=== PATIENT | female | born 1965 | race Caucasian/White ===

== ENCOUNTER 2019-05-22 12:24 | Emergency (ER) | payer OTHER ==
--- OUTSIDE RECORDS SUMMARY | 2019-05-22 12:30 | XMS REPORT | Continuity of Care Document ---
:1965 External Reference #:[id number] Author Name Lizzy Peck, LYLE Address [address] [place] [address] Care Team Providers Name Role Phone Valentin Kirkland - Family Medicine Care Team Information Landscape Foreman [phone] Other Specialty Care Team Information Landscape Foreman Unavailable Ileana Byers ND, CM - Internal Care Team Information Landscape Foreman [phone] [facility] Physical Care Team Information Landscape Foreman Therapy - Physical Therapy Problems Active Problems Provider Date Exacerbation of asthma Panchito Weir M.D. Onset: 05/09/2009 Allergic rhinitis Valentin Kirkland M.D. Onset: 07/26/2009 Anxiety state Valentin Kirkland M.D. Onset: 03/03/2011 Myalgia & Myositis Unspecified Valentin Kirkland M.D. Onset: 01/14/2012 Arthropathy Valentin Kirkland M.D. Onset: 01/14/2012 Malaise and fatigue Valentin Kirkland M.D. Onset: 01/14/2012 Fever Valentin Kirkland M.D. 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 Onset: 12/08/2012 Palpitations Valentin Kirkland M.D. Onset: 10/31/2013 Obstructive sleep apnea syndrome Valentin Kirkland M.D. Onset: 10/31/2013 Arthralgia of the lower leg Valentin Kirkland M.D. Onset: 05/18/2014 Arthralgia of the ankle and/or foot Valentin Kirkland M.D. Onset: 05/18/2014 Carpal tunnel syndrome Valentin Kirkland M.D. Onset: 06/19/2014 Right lower quadrant pain Valentin Kirkland M.D. Onset: 01/21/2015 Allergic condition Valentin Kirkland M.D. Onset: 01/21/2015 Uterovaginal prolapse Valentin Kirkland M.D. Onset: 03/25/2015 Lyme disease Valentin Kirkland M.D. Onset: 03/25/2015 Benign paroxysmal positional vertigo Valentin Kirkland M.D. Onset: 07/02/2015 Chest pain Evan Lombardo M.D. Onset: 07/20/2015 Gastroesophageal reflux disease Valentin Kirkland M.D. Onset: 07/29/2015 Joint pain in left hand Valentin Kirkland M.D. Onset: 05/31/2017 Bronchitis Valentin Kirkland M.D. Onset: 07/10/2017 Mild intermittent asthma Valentin Kirkland M.D. Onset: 07/10/2017 Acute upper respiratory infection, Valentin Kirkland M.D. Onset: 07/10/2017 unspecified Low back pain Valentin Kirkland M.D. Onset: 01/23/2019 Social History Type Date Description Comments Sex Unknown Tobacco Use Start: Unknown Never Smoked Cigarettes ETOH Use Denies alcohol use Tobacco Use Start: Unknown Patient has never smoked Smoking Status Reviewed: 04/10/19 Patient has never smoked Allergies, Adverse Reactions, Alerts Active Allergies Reaction Severity Comments Date NKDA 03/02/2011 Wheat sensative 08/19/2016 Shrimp 09/17/2017 Medications Active Medications SIG Qnty Indications Ordering Date Provider Sertraline HCL Take 1/2 Tablet 45Tablet Conchis Sheppard, 11/24/2018 25mg By Mouth Every SCAFFOLDER Tablets Day Alprazolam 1/2-1 tabs by 40tabs Lizzy Rajan 09/07/2016 0.25mg Tablets mouth twice a Peck, PENSION AGENT day as needed anxiety Albuterol Inhaler 2 puffs four 2units Vinod Gutierrez 12/27/2004 times a day as Joel Troncoso needed Reglan one by mouth 30tabs Valentin Kirkland, 03/02/2002 10mg Tablets every day as Joel needed for migraines Melatonin ER once at every Unknown 3mg Tablets night at bedtime ER Cholestyramine dissolve & take Unknown 4gm Packet one powder packet by mouth three times daily before meals Synapsin 2 sprays each Unknown Powder nostril bid History Medications Cyclobenzaprine HCL take 1 to 2 30tabs M54.5 Valentin Kirkland, 01/23/2019 - 5mg tablets by Joel 04/10/2019 Tablets mouth at bedtime for muscle spasms Medications Administered in Office Medication SIG Qnty Indications Ordering Provider Date Allergy Injection Two Or More Valentin Kirkland M.D. 07/30/2014 Injection Allergy Injection Two Or More Valentin Kirkland M.D. 06/29/2014 Injection Allergy Injection Arie Or More Valentin Kirkland M.D. 05/31/2014 Injection Allergy Injection Arie Or More Valentin Kirkland M.D. 05/03/2014 Injection Allergy Injection Arie Or More Valentin Kirkland M.D. 04/20/2014 Injection Allergy Injection Arie Or More Valentin Kirkland M.D. 04/05/2014 Injection Allergy Injection Arie Or More Valentin Kirkland M.D. 03/23/2014 Injection Allergy Injection Arie Or More Valentin Kirkland M.D. 03/09/2014 Injection Allergy Injection Arie Or More Valentin Kirkland M.D. 02/23/2014 Injection Allergy Injection Arie Or More Valentin Kirkland M.D. 02/08/2014 Injection Allergy Injection Arie Or More Valentin Kirkland M.D. 01/25/2014 Injection Allergy Injection Arie Or More Valentin Kirkland M.D. 01/11/2014 Injection Allergy Injection Arie Or More Valentin Kirkland M.D. 01/11/2014 Injection Allergy Injection Arie Or More Valentin Kirkland M.D. 12/28/2013 Injection Allergy Injection Arie Or More Valentin Kirkland M.D. 12/14/2013 Injection Allergy Injection Two Or More Valentin T. Midura, M.D. 11/30/2013 Injection Allergy Injection Two Or More Valentin T. Midura, M.D. 11/16/2013 Injection Allergy Injection Two Or More Valentin T. Midura, M.D. 11/02/2013 Injection Allergy Injection Two Or More Valentin T. Midura, M.D. 10/20/2013 Injection Allergy Injection Two Or More Valentin T. Midura, M.D. 10/05/2013 Injection Allergy Injection Two Or More Valentin T. Midura, M.D. 09/21/2013 Injection Allergy Injection Two Or More Valentin T. Midura, M.D. 09/07/2013 Injection Allergy Injection Two Or More Valentin T. Midura, M.D. 08/23/2013 Injection Allergy Injection Two Or More Valentin T. Midura, M.D. 08/09/2013 Injection Allergy Injection Two Or More Valentin T. Midura, M.D. 07/28/2013 Injection Allergy Injection Two Or More Valentin T. Midura, M.D. 07/14/2013 Injection Allergy Injection Two Or More Valentin T. Midura, M.D. 06/27/2013 Injection Allergy Injection Two Or More Valentin T. Midura, M.D. 06/12/2013 Injection Allergy Injection Two Or More Valentin T. Midura, M.D. 05/24/2013 Injection Allergy Injection Two Or More Valentin T. Midura, M.D. 05/12/2013 Injection Allergy Injection Two Or More Valentin T. Midura, M.D. 04/25/2013 Injection Allergy Injection Two Or More Valentin T. Midura, M.D. 04/11/2013 Injection Allergy Injection Two Or More Valentin T. Midura, M.D. 03/28/2013 Injection Allergy Injection Two Or More Valentin T. Midura, M.D. 03/14/2013 Injection Allergy Injection Two Or More Valentin T. Midura, M.D. 02/28/2013 Injection Allergy Injection Two Or More Valentin T. Midura, M.D. 02/14/2013 Injection Allergy Injection Two Or More Valentin T. Midura, M.D. 02/01/2013 Injection Allergy Injection Two Or More Valentin T. Midura, M.D. 01/20/2013 Injection Allergy Injection Two Or More Valentin T. Midura, M.DSergio 01/10/2013 Injection Allergy Injection Two Or More Valentin T. Midura, M.DSergio 12/27/2012 Injection Allergy Injection Two Or More Valentin T. Midura, M.D. 12/13/2012 Injection Allergy Injection Two Or More Valentin T. Midura, M.D. 11/28/2012 Injection Allergy Injection Two Or More Valentin T. Midkelsie, M.DSergio 11/15/2012 Injection Allergy Injection Two Or More Valentin T. Midura, M.DSergio 11/01/2012 Injection Allergy Injection Two Or More Valentin T. Midura, M.DSergio 10/18/2012 Injection Allergy Injection Two Or More Valentin T. Midkelsie, Aravind.DSergio 10/04/2012 Injection Allergy Injection Two Or More Valentin T. Midura, M.DSergio 09/21/2012 Injection Allergy Injection Two Or More Valentin T. Midkelsie, Aravind.DSergio 08/31/2012 Injection Allergy Injection Two Or More Valentin T. Midura, Aravind.DSergio 08/17/2012 Injection Allergy Injection Two Or More Valentin T. Midura, Aravind.DSergio 08/03/2012 Injection Allergy Injection Two Or More Valentin T. Midura, Aravind.DSergio 07/20/2012 Injection Allergy Injection Two Or More Valentin T. Midura, Aravind.DSergio 07/06/2012 Injection Allergy Injection Two Or More Valentin T. Midura, Aravind.DSergio 06/22/2012 Injection Allergy Injection Two Or More Valentin T. Midura, Aravind.DSergio 05/31/2012 Injection Allergy Injection Two Or More Valentin T. Midura, Aravind.DSergio 05/17/2012 Injection Allergy Injection Two Or More Valentin T. Midura, M.DSergio 05/03/2012 Injection Allergy Injection Two Or More Valentin T. Midura, Aravind.DSergio 04/19/2012 Injection Allergy Injection Two Or More Valentin T. Midura, Aravind.DSergio 04/05/2012 Injection Allergy Injection Two Or More Valentin T. Midura, M.DSergio 03/22/2012 Injection Allergy Injection Two Or More Valentin T. Midura, Aravind.DSergio 03/08/2012 Injection Allergy Injection Two Or More Valentin T. Midura, Aravind.DSergio 02/23/2012 Injection Allergy Injection Two Or More Valentin T. Isael, Aravind.DSergio 02/09/2012 Injection Allergy Injection Two Or More Valentin T. Isael, Aravind.DSergio 01/26/2012 Injection Allergy Injection Two Or More Valentin T. Isael, Aravind.DSergio 01/12/2012 Injection Allergy Injection Two Or More Valentin T. Isael, Aravind.DSergio 12/22/2011 Injection Allergy Injection Two Or More Valentin T. Isael, Aravind.DSergio 11/23/2011 Injection Allergy Injection Two Or More Valentin T. Isael, Aravind.DSergio 11/06/2011 Injection Allergy Injection Two Or More Valentin T. Isael, Aravind.DSergio 10/22/2011 Injection Allergy Injection Two Or More Valentin T. Isael, SunilDSergio 10/07/2011 Injection Allergy Injection Two Or More Valentin T. Isael, Aravind.DSergio 09/23/2011 Injection Allergy Injection Two Or More Valentin T. Sunil KirklandDSergio 09/09/2011 Injection Allergy Injection Two Or More Valentin T. Isael, SunilDSergio 08/26/2011 Injection Allergy Injection Two Or More Valentin T. Isael, Aravind.DSergio 08/13/2011 Injection Allergy Injection Two Or More Valentin T. Isael, Aravind.DSergio 07/29/2011 Injection Allergy Injection Two Or More Valentin T. Isael, Aravind.DSergio 07/15/2011 Injection Allergy Injection Two Or More Valentin T. Isael, Aravind.DSergio 07/01/2011 Injection Allergy Injection Two Or More Valentin T. Isael, Aravind.DSergio 06/17/2011 Injection Allergy Injection Two Or More Valentin T. Isael, Aravind.DSergio 06/03/2011 Injection Allergy Injection Two Or More Valentin T. Isael, Aravind.DSergio 05/20/2011 Injection Allergy Injection Two Or More Valentin T. Isael, Aravind.DSergio 05/06/2011 Injection Allergy Injection Two Or More Valentin T. Isael, Aravind.DSergio 04/22/2011 Injection Allergy Injection Two Or More Valentin T. Isael, Aravind.DSergio 04/08/2011 Injection Allergy Injection Two Or More Valentin T. Isael, Aravind.DSergio 03/26/2011 Injection Allergy Injection Two Or More Valentin T. Isael, Aravind.D. 03/13/2011 Injection Allergy Injection Two Or More Valentin T. Isael, M.DSergio 02/16/2011 Injection Allergy Injection Two Or More Valentin T. Isael, M.D. 02/02/2011 Injection Allergy Injection Two Or More Valentin T. Midkelsie, M.DSergio 01/13/2011 Injection Allergy Injection Two Or More Valentin T. Midkelsie, M.DSergio 12/29/2010 Injection Allergy Injection Two Or More Valentin T. Midura, M.DSergio 12/15/2010 Injection Allergy Injection Two Or More Valentin T. Midura, M.DSergio 12/01/2010 Injection Allergy Injection Two Or More Valentin T. Isael, M.DSergio 11/17/2010 Injection Allergy Injection Two Or More Valentin T. Midkelsie, M.DSegrio 11/03/2010 Injection Allergy Injection Two Or More Valentin T. Midkelsie, M.DSergio 10/20/2010 Injection Allergy Injection Two Or More Valentin T. Isael, Aravind.DSergio 10/06/2010 Injection Allergy Injection Two Or More Valentin T. Midkelsie, M.DSergio 09/17/2010 Injection Allergy Injection Two Or More Valentin T. Midkelsie, M.DSergio 09/03/2010 Injection Allergy Injection Two Or More Valentin T. Midkelsie, M.DSergio 08/19/2010 Injection Allergy Injection Two Or More Valentin T. Midura, M.D. 08/06/2010 Injection Allergy Injection Two Or More Valentin T. Midkelsie, M.D. 07/23/2010 Injection Allergy Injection Two Or More Valentin T. Midkelsie, M.D. 07/09/2010 Injection Allergy Injection Two Or More Valentin T. Midura, M.DSergio 06/25/2010 Injection Allergy Injection Two Or More Valentin T. Midura, M.D. 06/09/2010 Injection Allergy Injection Two Or More Valentin T. Midura, M.DSergio 05/26/2010 Injection Allergy Injection Two Or More Valentin T. Midura, M.D. 05/12/2010 Injection Allergy Injection Two Or More Valentin T. Midkelsie, M.D. 04/28/2010 Injection Allergy Injection Two Or More Valentin T. Midura, M.D. 04/14/2010 Injection Allergy Injection Two Or More Valentin T. Midura, M.D. 03/31/2010 Injection Allergy Injection Two Or More Valentin T. Midura, M.D. 03/07/2010 Injection Allergy Injection Two Or More Valentin T. Midura, M.D. 02/07/2010 Injection Allergy Injection Two Or More Valentin T. Midura, M.D. 01/24/2010 Injection Allergy Injection Two Or More Valentin T. Midura, M.D. 01/10/2010 Injection Allergy Injection Two Or More Valentin T. Midura, M.D. 12/27/2009 Injection Allergy Injection Two Or More Valentin T. Midura, M.D. 12/13/2009 Injection Allergy Injection Two Or More Valentin T. Midura, M.D. 11/29/2009 Injection Allergy Injection Two Or More Valentin T. Midura, M.D. 11/15/2009 Injection Allergy Injection Two Or More Valentin T. Midura, M.D. 11/01/2009 Injection Allergy Injection Two Or More Valentin T. Midura, M.D. 10/08/2009 Injection Allergy Injection Two Or More Valentin T. Midura, M.D. 09/24/2009 Injection Allergy Injection Two Or More Valentin T. Midura, M.D. 09/09/2009 Injection Allergy Injection Two Or More Valentin T. Midura, M.D. 08/23/2009 Injection Allergy Injection Two Or More Valentin T. Midura, M.D. 08/09/2009 Injection Allergy Injection Two Or More Valentin T. Midura, M.D. 07/26/2009 Injection Allergy Injection Two Or More Valentin T. Midura, M.D. 07/11/2009 Injection Allergy Injection Two Or More Valentin T. Midura, M.D. 06/28/2009 Injection Allergy Injection Two Or More Valentin T. Midura, M.D. 06/14/2009 Injection Allergy Injection Two Or More Valentin T. Midura, M.D. 05/29/2009 Injection Allergy Injection Two Or More Valentin T. Midura, M.D. 05/08/2009 Injection Allergy Injection Two Or More Valentin T. Midura, M.D. 04/24/2009 Injection Allergy Injection Two Or More Valentin T. Midura, M.D. 04/17/2009 Injection Allergy Injection Two Or More Valentin T. Midura, M.D. 04/10/2009 Injection Allergy Injection Two Or More Valentin T. Midura, M.D. 02/27/2009 Injection Allergy Injection Two Or More Valentin T. Midura, M.D. 02/13/2009 Injection Allergy Injection Two Or More Valentin T. Midura, M.D. 01/30/2009 Injection Allergy Injection Two Or More Valentin T. Midura, M.D. 01/16/2009 Injection Allergy Injection Two Or More Valentin T. Midura, M.D. 01/02/2009 Injection Allergy Injection Two Or More Valentin T. Midura, M.D. 12/19/2008 Injection Allergy Injection Two Or More Valentin T. Midura, M.DSergio 12/06/2008 Injection Allergy Injection Two Or More Valentin T. Midura, M.D. 11/21/2008 Injection Allergy Injection Two Or More Valentin T. Midura, M.D. 11/07/2008 Injection Allergy Injection Two Or More Valentin T. Midura, M.D. 10/24/2008 Injection Allergy Injection Two Or More Valentin T. Midura, M.D. 10/10/2008 Injection Allergy Injection Two Or More Valentin T. Midura, M.D. 09/26/2008 Injection Allergy Injection Two Or More Valentin T. Midura, M.D. 09/12/2008 Injection Allergy Injection Two Or More Valentin T. Midura, M.D. 08/15/2008 Injection Allergy Injection Two Or More Valentin T. Midura, M.D. 08/01/2008 Injection Allergy Injection Two Or More Valentin T. Midura, M.D. 07/16/2008 Injection Allergy Injection Two Or More Valentin T. Midura, M.D. 06/27/2008 Injection Allergy Injection Two Or More Valentin T. Midura, M.D. 06/13/2008 Injection Allergy Injection Two Or More Valentin T. Midura, M.D. 06/06/2008 Injection Allergy Injection Two Or More Valentin T. Midura, M.D. 05/30/2008 Injection Allergy Injection Two Or More Valentin T. Midura, M.D. 05/23/2008 Injection Allergy Injection Two Or More Valentin T. Midura, M.DSergio 05/16/2008 Injection Allergy Injection Two Or More Valentin Michael Kirkland M.D. 05/09/2008 Injection Allergy Injection Two Or More Valentin Michael Kirkland M.D. 04/27/2008 Injection Allergy Injection Two Or More Valentin Sunil LalaDSergio 04/20/2008 Injection Allergy Injection Two Or More Valentin Aravind Lala.DSergio 04/13/2008 Injection Allergy Injection Two Or More Valentin Michael Kirkland M.D. 04/05/2008 Injection Allergy Injection Two Or More Valentin TSunil JosephDSergio 03/23/2008 Injection Allergy Injection Two Or More Valentin Michael Kirkland M.D. 03/15/2008 Injection Allergy Injection Two Or More Valentin Michael Kirkland M.D. 03/09/2008 Injection Allergy Injection Two Or More Valentin Sunil LalaDSergio 03/02/2008 Injection Allergy Injection Two Or More Valentinnereida Kirkland M.D. 02/24/2008 Injection Allergy Injection Two Or More Valentin Michael Kirkland M.D. 02/09/2008 Injection Allergy Injection Two Or More Valentin Sunil LalaDSergio 01/27/2008 Injection Allergy Injection Two Or More Valentin Michael Kirkland M.D. 01/20/2008 Injection Allergy Injection Two Or More Valentin Michael Kirkland M.D. 01/12/2008 Injection Allergy Injection Two Or More Valentin Sunil LalaDSergio 01/06/2008 Injection Allergy Injection Two Or More Valentin Michael Kirkland M.D. 12/30/2007 Injection Allergy Injection Two Or More Valentin Sunil LalaDSergio 12/23/2007 Injection Allergy Injection Two Or More Valentin Sunil LalaDSergio 12/16/2007 Injection Allergy Injection Two Or More Valentin Megan. Joel Kirkland 12/02/2007 Injection Allergy Injection Two Or More Valentin TSergio Kirkland, SunilDSergio 11/25/2007 Injection Allergy Injection Two Or More Valentin TSunil JosephDSergio 11/18/2007 Injection Allergy Injection Two Or More Valentin Michael Kirkland M.D. 11/11/2007 Injection Allergy Injection Two Or More Valentin T. Isael, M.D. 11/04/2007 Injection Allergy Injection Two Or More Valentin Kirkland M.D. 10/28/2007 Injection Allergy Injection Two Or More Valentin Kirkland M.D. 10/20/2007 Injection Allergy Injection Two Or More Valentin Kirkland M.D. 10/13/2007 Injection Immunizations CPT Code Status Date Vaccine Reaction Lot # [id number] Given 05/25/2018 Influenza Vac, Quadriv[place] [address] Given 04/28/2016 Influenza Vac, [place] [address] Given 07/29/2015 Tdap Tetanus, W Pertussis [id number] 76424 Given 03/25/2015 Influenza Vac, Quadrivalent, [place] [id number] [place] [address] Given 05/03/2014 DO Not Use Split Influenza Virus [id number] Vaccine 84525 Given 05/24/2013 DO Not Use Split Influenza Virus [id number] Vaccine 83554 Given 04/08/2011 DO Not Use Split Influenza Virus [id number] Vaccine 30277 Given 05/12/2010 DO Not Use Split Influenza Virus [id number] Vaccine 22574 Given 08/09/2009 DO Not Use Split Influenza Virus TCHD [id number] Vaccine 41684 Given 06/28/2009 H1N1 Virus Vaccine [id number] 63204 Given 06/28/2009 H1N1 Immunization Intramuscular/Intranasal W Counseling 68154 Given 06/14/2009 Pneumococcal Immunization [id number] 54826 Given 06/06/2008 DO Not Use Split Influenza Virus [id number] Vaccine 61607 Given 02/12/2005 Td Immunization, For Use In Individuals 7 Years Or Older Vital Signs Date Vital Result Comment 04/10/2019 9:30am BP Systolic 120 mmHg BP Diastolic 88 mmHg Heart Rate 60 /min Body Temperature 97.7 F Respiratory Rate 12 /min Height 66 inches 5'6" measured Weight 201.00 lb BMI (Body Mass Index) 32.4 kg/m2 01/23/2019 9:15am BP Systolic 134 mmHg BP Diastolic 80 mmHg Heart Rate 64 /min Body Temperature 98.8 F Respiratory Rate 16 /min Height 65.5 inches 5'5.50" Weight 192.00 lb BMI (Body Mass Index) 31.5 kg/m2 Results Test Date Facility Test Result H/L Range Note CBC Auto Diff 04/07/2019 [facility] White Blood Count 4.9 10^3/uL Normal 3.5- 10.8 Red Blood Count 4.56 10^6/uL Normal 3.70-4.87 Hemoglobin 14.6 g/dL Normal 12.0-16.0 Hematocrit 42 % Normal 35-47 Mean Corpuscular Volume 92 fL Normal 80-97 Mean Corpuscular Hemoglobin 32 pg High 27-31 Mean Corpuscular HGB Conc 35 g/dL Normal 31-36 Red Cell Distribution Width 13 % Normal 10-15 Platelet Count 200 10^3/uL Normal 150-450 Mean Platelet Volume 7.6 fL Normal 7.4-10.4 Abs Neutrophils 2.7 10^3/uL Normal 1.5-7.7 Abs Lymphocytes 1.7 10^3/uL Normal 1.0-4.8 Abs Monocytes 0.3 10^3/uL Normal 0-0.8 Abs Eosinophils 0.1 10^3/uL Normal 0-0.6 Abs Basophils 0.0 10^3/uL Normal 0-0.2 Abs Nucleated RBC 0.0 10^3/uL Granulocyte % 55.0 % Lymphocyte % 35.4 % Monocyte % 6.5 % Eosinophil % 2.3 % Basophil % 0.8 % Nucleated Red Blood Cells % 0.1 Comp Metabolic Panel 04/07/2019 [facility] Sodium 138 mmol/L Normal 135-145 Potassium 4.3 mmol/L Normal 3.5-5.0 Chloride 105 mmol/L Normal 101-111 Co2 Carbon Dioxide 28 mmol/L Normal 22-32 Anion Gap 5 mmol/L Normal 2-11 Glucose 90 mg/dL Normal 70-100 Blood Urea Nitrogen 20 mg/dL Normal 6-24 Creatinine 0.86 mg/dL Normal 0.51-0.95 BUN/Creatinine Ratio 23.3 High 8-20 Calcium 8.8 mg/dL Normal 8.6-10.3 Total Protein 6.4 g/dL Normal 6.4-8.9 Albumin 4.3 g/dL Normal 3.2-5.2 Globulin 2.1 g/dL Normal 2-4 Albumin/Globulin Ratio 2.0 Normal 1-3 Total Bilirubin 0.60 mg/dL Normal 0.2-1.0 Alkaline Phosphatase 49 U/L Normal 34-104 Alt 26 U/L Normal 7-52 Ast 19 U/L Normal 13-39 Egfr Non- 68.8 >60 Egfr 83.2 >60 1 Laboratory test finding 04/07/2019 [facility] LDH 119 U/L Low 140-271 Iron & Iron Binding Capacity 04/07/2019 [facility] Iron 129 g/dL Normal 50- 212 Unsaturated Iron Binding < 294 g/dL Total Iron Binding Capacity 309 g/dL Normal 250-450 Transferrin 221 mg/dL Normal 203-362 % Iron Saturation 42 % Normal 15-55 Laboratory test finding 04/07/2019 [facility] Cortisol 13.01 g/dL 2 TSH (Thyroid Stim Horm) 2.32 mcIU/mL Normal 0.34-5.60 T3 Free 3.00 pg/mL Normal 2.5-3.9 Free T4 (Free Thyroxine) 0.95 ng/dL Normal 0.61-1.12 Ferritin 42.4 ng/mL Normal 11-307 Vitamin D Total 25(Oh) 35.8 ng/mL Normal 20-50 3 CKMB 04/07/2019 [facility] CKMB ng/mL 4.5 ng/mL Normal 0.6-6.3 Laboratory test 11/29/2018 [facility] Trans Growth 3407 pg/mL Abnormal [id number]- [id number] 4 finding Factor beta, S 1 Because ethnic data is not always readily available, this report includes an eGFR for both -Americans and non- Americans. The National Kidney Disease Education Program (NKDEP) does not endorse the use of the MDRD equation for patients that are not between the ages of 18 and 70, are , have extremes of body size, muscle mass, or nutritional status, or are non- or non-. According to the National Kidney Foundation, irrespective of diagnosis, the stage of the disease is based on the level of kidney function: Stage Description GFR(mL/min/1.73 m(2)) 1 Kidney damage with normal or decreased GFR 90 2 Kidney damage with mild decrease in GFR 60-89 3 Moderate decrease in GFR 30-59 4 Severe decrease in GFR 15-29 5 Kidney failure <15 (or dialysis) 2 AM 8.7-22.4 PM <10 3 Total 25-Hydroxyvitamin D2 and D3 (25-OH-VitD) <10 ng/mL (severe deficiency) 10-19 ng/mL (mild to moderate deficiency) 20-50 ng/mL (optimum levels) 51-80 ng/mL (increased risk of hypercalciuria) >80 ng/mL (toxicity possible) 4 INTERPRETIVE INFORMATION: Transforming Growth Factor beta, Serum Results are intended for research purposes or in attempts to understand the pathophysiology of unusual immune or inflammatory disorders. Test developed and characteristics determined by [facility]. See Compliance Statement B: [facility] Performed by [facility], [address] [place] [address] [email or web address] [facility], Rafa Munson MD - Lab. Director Test Performed by: [facility] [address] [place] [address] Procedures Date Code Description Status 11/14/2018 [id number] Mammogram Completed 06/25/2017 [id number] Mammogram Completed 05/18/2016 [id number] Mammogram Completed 09/12/2015 [id number] Colonoscopy Completed 05/17/2015 [id number] Mammogram Completed 05/14/2014 [id number] Mammogram Completed 09/29/2013 [id number] Mammogram Completed 03/07/2013 [id number] Mammogram Completed 10/21/2011 [id number] Mammogram Completed 04/05/2008 [id number] Mammogram Completed 12/30/2006 [id number] Mammogram Completed Medical Devices Description No Information Available Encounters Type Date Location Provider Dx Diagnosis Office Visit 01/23/2019 9:20a Main Office Valentin Kirkland M.D. M54.5 Low back pain R53.83 Other fatigue Assessments Date Code Description Provider 04/10/2019 R01.1 Cardiac murmur, unspecified Lizzy Peck, LYLE 04/10/2019 R53.82 Chronic fatigue, unspecified Lizzy Peck, LYLE 04/10/2019 Z23 Encounter for immunization Lizzy Peck, LYLE 01/23/2019 M54.5 Low back pain Valentin Kirkland M.D. 01/23/2019 R53.83 Other fatigue Valentin Kirkland M.D. Plan of Treatment 04/10/2019 - Lizzy Peck, NPR01.1 Cardiac murmur, unspecifiedComments: Echocardiogram patient instructed to call back if condition fails to improve or worsens.R53.82 Chronic fatigue, unspecifiedComments:following with specialist, labs drawn last week, will keep us posted on updates.Z23 Encounter for immunizationComments:Your flu vaccination has been administered. This protects you for the fall, winter and spring. It will decrease the likelihood that you will get the flu. If you are unlucky and get the flu, the symptoms will be less severe.AllComments:Medication Management Patient Understands medications he 's taking? Yes No Are there Barriers to Adherence? Yes No Has the patient been asked about herbal supplements and therapies, andOTC meds? Yes No Care Plan1. Patient has been queried about patient's goals/ preferences and functional/lifestyle goals at relevant visits. If relevant, describe: na2. Treatment goals as explained to the patient: above3. Are there barriers to meeting treatment goals? Yes No If Yes, please describe: comorbid conditions 4. Self-Management goals as described to the patient: Yes NoAs always, we strongly encourage a healthy diet and making physical activity a part of your every day life. If you have questions about how or where to start, please contact the office. Functional Status Description No Information Available Mental Status Description No Information Available Referrals Description No Information Available
--- OUTSIDE RECORDS SUMMARY | 2019-05-22 12:30 | XMS REPORT | Continuity of Care Document ---
:1965 External Reference #:[id number] Author Name Lizzy Peck, LYLE Address [address] [place] [address] Care Team Providers Name Role Phone Valentin Kirkland - Family Medicine Care Team Information Vice President Biostatistics [phone] Other Specialty Care Team Information Vice President Biostatistics Unavailable Ileana Byers ND, CM - Internal Care Team Information Vice President Biostatistics [phone] [facility] Physical Care Team Information Vice President Biostatistics [phone] Therapy - Physical Therapy Problems Active Problems [...] Patient has never smoked Smoking Status Reviewed: 05/15/19 Patient has never smoked Allergies, Adverse Reactions, Alerts Active Allergies Reaction Severity Comments Date NKDA 03/02/2011 Wheat sensative 08/19/2016 Shrimp 09/17/2017 Medications Active Medications SIG Qnty Indications Ordering Date Provider 24 Hour Holter Monitor apply for 24 1units R00.2 Lizzy Rajan 05/15/2019 hours - dx r00.2 Peck, MACHINE DESIGNER Sertraline HCL Take 1/2 Tablet 45Tablet Conchis Sheppard, 11/24/2018 25mg By Mouth Every BOILERMAKER APPRENTICE Tablets Day Alprazolam 1/2-1 tabs by 40tabs Lizzy Rajan 09/07/2016 0.25mg Tablets mouth twice a Peck, MACHINE DESIGNER day as needed anxiety Albuterol Inhaler 2 [...] Valentin Kirkland M.D. 07/30/2014 Injection Allergy Injection Arie Or More Valentin Kirkland M.D. 06/29/2014 Injection [...] Valentin Kirkland M.D. 12/28/2013 Injection Allergy Injection Two Or More Valentin T. Midkelsie, M.DSergio 12/14/2013 Injection Allergy Injection Two Or More Valentin T. Midkelsie, M.DSergio 11/30/2013 Injection Allergy Injection Two Or More Valentin T. Midura, M.DSergio 11/16/2013 Injection Allergy Injection Two Or More Valentin T. Midkelsie, M.DSergio 11/02/2013 Injection Allergy Injection Two Or More Valentin T. Midkelsie, M.DSergio 10/20/2013 Injection Allergy Injection Two Or More Valentin T. Midura, M.DSergio 10/05/2013 Injection Allergy Injection Two Or More Valentin T. Midkelsie, M.DSergio 09/21/2013 Injection Allergy Injection Two Or More Valentin T. Midura, Aravind.DSergio 09/07/2013 Injection Allergy Injection Two Or More Valentin T. Midkelsie, Aravind.DSergio 08/23/2013 Injection Allergy Injection Two Or More Valentin T. Midkelsie, Aravind.DSergio 08/09/2013 Injection Allergy Injection Two Or More Valentin T. Midura, Aravind.DSergio 07/28/2013 Injection Allergy Injection Two Or More Valentin T. Midkelsie, Aravind.DSergio 07/14/2013 Injection Allergy Injection Two Or More Valentin T. Isael, Aravind.DSergio 06/27/2013 Injection Allergy Injection Two Or More Valentin T. Midura, Aravind.DSergio 06/12/2013 Injection Allergy Injection Two Or More Valentin T. Midkelsie, M.DSergio 05/24/2013 Injection Allergy Injection Two Or More Valentin T. Midkelsie, Aravind.DSergio 05/12/2013 Injection Allergy Injection Two Or More Valentin T. Midura, M.D. 04/25/2013 Injection Allergy Injection Two Or More Valentin T. Midura, M.D. 04/11/2013 Injection Allergy Injection Two Or More Valentin T. Midura, M.DSergio 03/28/2013 Injection Allergy Injection Two Or More Valentin T. Midura, M.DSergio 03/14/2013 Injection Allergy Injection Two Or More Valentin T. Midura, M.DSergio 02/28/2013 Injection Allergy Injection Two Or More Valentin T. Midura, Aravind.DSergio 02/14/2013 Injection Allergy Injection Two Or More Valentin T. Midura, M.DSergio 02/01/2013 Injection Allergy Injection Two Or More Valentin T. Midkelsie, Aravind.DSergio 01/20/2013 Injection Allergy Injection Two Or More Valentin T. Isael, M.DSergio 01/10/2013 Injection Allergy Injection Two Or More Valentin T. Midkelsie, M.DSergio 12/27/2012 Injection Allergy Injection Two Or More Valentin T. Midkelsie, M.DSergio 12/13/2012 Injection Allergy Injection Two Or More Valentin T. Midura, Aravind.DSergio 11/28/2012 Injection Allergy Injection Two Or More Valentin T. Midura, M.DSergio 11/15/2012 Injection Allergy Injection Two Or More Valentin T. Midkelsie, Aravind.DSergio 11/01/2012 Injection Allergy Injection Two Or More Valentin T. Midura, Aravind.DSergio 10/18/2012 Injection Allergy Injection Two Or More Valentin T. Midkelsie, Aravind.DSergio 10/04/2012 Injection Allergy Injection Two Or More Valentin T. Midkelsie, Aravind.DSergio 09/21/2012 Injection Allergy Injection Two Or More Valentin T. Midura, Aravind.DSergio 08/31/2012 Injection Allergy Injection Two Or More Valentin T. Midkelsie, Aravind.DSergio 08/17/2012 Injection Allergy Injection Two Or More Valentin T. Midura, Aravind.DSergio 08/03/2012 Injection Allergy Injection Two Or More Valentin T. Midura, Aravind.DSergio 07/20/2012 Injection Allergy Injection Two Or More Valentin T. Midkelsie, M.DSergio 07/06/2012 Injection Allergy Injection Two Or More Valentin T. Midura, Aravind.DSergio 06/22/2012 Injection Allergy Injection Two Or More Valentin T. Midura, M.DSergio 05/31/2012 Injection Allergy Injection Two Or More Valentin T. Midura, M.DSergio 05/17/2012 Injection Allergy Injection Two Or More Valentin T. Midura, M.DSergio 05/03/2012 Injection Allergy Injection Two Or More Valentin T. Midura, Aravind.DSergio 04/19/2012 Injection Allergy Injection Two Or More Valentin T. Midura, M.DSergio 04/05/2012 Injection Allergy Injection Two Or More Valentin T. Midura, M.DSergio 03/22/2012 Injection Allergy Injection Two Or More Valentin T. Midura, M.D. 03/08/2012 Injection Allergy Injection Two Or More Valentin T. Midura, M.DSergio 02/23/2012 Injection Allergy Injection Two Or More Valentin T. Midura, M.D. 02/09/2012 Injection Allergy Injection Two Or More Valentin T. Midura, M.D. 01/26/2012 Injection Allergy Injection Two Or More Valentin T. Midura, M.D. 01/12/2012 Injection Allergy Injection Two Or More Valentin T. Midura, M.D. 12/22/2011 Injection Allergy Injection Two Or More Valentin T. Midura, M.D. 11/23/2011 Injection Allergy Injection Two Or More Valentin T. Midura, M.DSergio 11/06/2011 Injection Allergy Injection Two Or More Valentin T. Midura, M.DSergio 10/22/2011 Injection Allergy Injection Two Or More Valentin T. Midura, M.DSergio 10/07/2011 Injection Allergy Injection Two Or More Valentin T. Midura, M.DSergio 09/23/2011 Injection Allergy Injection Two Or More Valentin T. Midura, M.DSergio 09/09/2011 Injection Allergy Injection Two Or More Valentin T. Midura, M.DSergio 08/26/2011 Injection Allergy Injection Two Or More Valentin T. Midura, M.DSergio 08/13/2011 Injection Allergy Injection Two Or More Valentin T. Midura, M.D. 07/29/2011 Injection Allergy Injection Two Or More Valentin T. Midura, M.DSergio 07/15/2011 Injection Allergy Injection Two Or More Valentin T. Midura, M.D. 07/01/2011 Injection Allergy Injection Two Or More Valentin T. Midura, M.D. 06/17/2011 Injection Allergy Injection Two Or More Valentin T. Midura, M.D. 06/03/2011 Injection Allergy Injection Two Or More Valentin T. Midura, M.D. 05/20/2011 Injection Allergy Injection Two Or More Valentin T. Midura, M.D. 05/06/2011 Injection Allergy Injection Two Or More Valentin T. Midura, M.D. 04/22/2011 Injection Allergy Injection Two Or More Valentin T. Midura, M.D. 04/08/2011 Injection Allergy Injection Two Or More Valentin T. Midkelsie, M.D. 03/26/2011 Injection Allergy Injection Two Or More Valentin T. Isael, M.D. 03/13/2011 Injection Allergy Injection Two Or More Valentin T. Midkelsie, M.D. 02/16/2011 Injection Allergy Injection Two Or More Valentin T. Midkelsie, M.D. 02/02/2011 Injection Allergy Injection Two Or More Valentin T. Isael, M.D. 01/13/2011 Injection Allergy Injection Two Or More Valentin T. Midura, M.D. 12/29/2010 Injection Allergy Injection Two Or More Valentin T. Midkelsie, M.DSergio 12/15/2010 Injection Allergy Injection Two Or More Valentin T. Isael, M.DSergio 12/01/2010 Injection Allergy Injection Two Or More Valentin T. Midkelsie, M.DSergio 11/17/2010 Injection Allergy Injection Two Or More Valentin T. Isael, Aravind.DSergio 11/03/2010 Injection Allergy Injection Two Or More Valentin T. Midkelsie, Aravind.DSergio 10/20/2010 Injection Allergy Injection Two Or More Valentin T. Midkelsie, M.DSergio 10/06/2010 Injection Allergy Injection Two Or More Valentin T. Isael, Aravind.DSergio 09/17/2010 Injection Allergy Injection Two Or More Valentin T. Midkelsie, M.DSergio 09/03/2010 Injection Allergy Injection Two Or More Valentin T. Midkelsie, M.D. 08/19/2010 Injection Allergy Injection Two Or More Valentin T. Isael, M.D. 08/06/2010 Injection Allergy Injection Two Or More Valentin T. Midura, M.D. 07/23/2010 Injection Allergy Injection Two Or More Valentin T. Midkelsie, M.D. 07/09/2010 Injection Allergy Injection Two Or More Valentin T. Midkelsie, M.DSergio 06/25/2010 Injection Allergy Injection Two Or More Valentin T. Midura, M.D. 06/09/2010 Injection Allergy Injection Two Or More Valentin T. Midura, M.D. 05/26/2010 Injection Allergy Injection Two Or More Valentin T. Isael, M.D. 05/12/2010 Injection Allergy Injection Two Or More Valentin T. Midkelsie, M.DSergio 04/28/2010 Injection Allergy Injection Two Or More Valentin T. Isael, M.DSergio 04/14/2010 Injection Allergy Injection Two Or More Valentin T. Isael, M.DSergio 03/31/2010 Injection Allergy Injection Two Or More Valentin T. Midkelsie, M.DSergio 03/07/2010 Injection Allergy Injection Two Or More Valentin T. Midkelsie, M.DSergio 02/07/2010 Injection Allergy Injection Two Or More Valentin T. Isael, M.DSergio 01/24/2010 Injection Allergy Injection Two Or More Valentin T. Midura, M.DSergio 01/10/2010 Injection Allergy Injection Two Or More Valentin T. Midkelsie, Aravind.DSergio 12/27/2009 Injection Allergy Injection Two Or More Valentin T. Midkelsie, Aravind.DSergio 12/13/2009 Injection Allergy Injection Two Or More Valentin T. Midura, M.DSergio 11/29/2009 Injection Allergy Injection Two Or More Valentin T. Isael, Aravind.DSergio 11/15/2009 Injection Allergy Injection Two Or More Valentin T. Midkelsie, Aravind.DSergio 11/01/2009 Injection Allergy Injection Two Or More Valentin T. Midkelsie, M.DSergio 10/08/2009 Injection Allergy Injection Two Or More Valentin T. Midkelsie, M.DSergio 09/24/2009 Injection Allergy Injection Two Or More Valentin T. Midura, M.DSergio 09/09/2009 Injection Allergy Injection Two Or More Valentin T. Midura, M.DSergio 08/23/2009 Injection Allergy Injection Two Or More Valentin T. Midkelsie, M.DSergio 08/09/2009 Injection Allergy Injection Two Or More Valentin T. Midura, M.DSergio 07/26/2009 Injection Allergy Injection Two Or More Valentin T. Midura, M.DSergio 07/11/2009 Injection Allergy Injection Two Or More Valentin T. Midura, M.DSergio 06/28/2009 Injection Allergy Injection Two Or More Valentin T. Midura, M.DSergio 06/14/2009 Injection Allergy Injection Two Or More Valentin T. Midura, M.DSergio 05/29/2009 Injection Allergy Injection Two Or More Valentin T. Midura, M.DSergio 05/08/2009 Injection Allergy Injection Two Or More [...] Two Or More Valentin T. Midura, M.D. 12/06/2008 Injection Allergy Injection Two Or More [...] Two Or More Valentin T. Isael, M.DSergio 05/23/2008 Injection Allergy Injection Two Or More Valentin T. Isael, M.DSergio 05/16/2008 Injection Allergy Injection Two Or More Valentin T. Midkelsie, M.DSergio 05/09/2008 Injection Allergy Injection Two Or More Valentin T. Midkelsie, M.DSergio 04/27/2008 Injection Allergy Injection Two Or More Valentin T. Midkelsie, Aravind.DSergio 04/20/2008 Injection Allergy Injection Two Or More Valentin T. Midura, M.DSergio 04/13/2008 Injection Allergy Injection Two Or More Valentin T. Midkelsie, M.DSergio 04/05/2008 Injection Allergy Injection Two Or More Valentin T. Isael, M.DSergio 03/23/2008 Injection Allergy Injection Two Or More Valentin T. Midkelsie, Aravind.DSergio 03/15/2008 Injection Allergy Injection Two Or More Valentin T. Isael, Aravind.DSergio 03/09/2008 Injection Allergy Injection Two Or More Valentin T. Midkelsie, Aravind.DSergio 03/02/2008 Injection Allergy Injection Two Or More Valentin T. Midura, Aravind.DSergio 02/24/2008 Injection Allergy Injection Two Or More Valentin T. Midkelsie, Aravind.DSergio 02/09/2008 Injection Allergy Injection Two Or More Valentin T. Midura, Aravind.DSergio 01/27/2008 Injection Allergy Injection Two Or More Valentin T. Midura, Aravind.DSergio 01/20/2008 Injection Allergy Injection Two Or More Valentin T. Midkelsie, Aravind.DSergio 01/12/2008 Injection Allergy Injection Two Or More Valentin T. Midura, Aravind.DSergio 01/06/2008 Injection Allergy Injection Two Or More Valentin T. Midura, M.DSergio 12/30/2007 Injection Allergy Injection Two Or More Valentin T. Midura, Aravind.DSergio 12/23/2007 Injection Allergy Injection Two Or More Valentin T. Midura, Aravind.DSergio 12/16/2007 Injection Allergy Injection Two Or More Valentin T. Midura, Aravind.DSergio 12/02/2007 Injection Allergy Injection Two Or More Valentin T. Midkelsie, Aravind.DSergio 11/25/2007 Injection Allergy Injection Two Or More Valentin T. Midura, Aravind.DSergio 11/18/2007 Injection Allergy Injection Two Or More Vlaentin Kirkland M.D. 11/11/2007 Injection Allergy Injection Two Or More Valentin Kirkland M.D. 11/04/2007 Injection Allergy Injection Two Or More Valentin Kirkland M.D. 10/28/2007 Injection Allergy Injection Two Or More Valentin Kirkland M.D. 10/20/2007 Injection Allergy Injection Two Or More Valentin Kirkland M.D. 10/13/2007 Injection Immunizations CPT Code Status Date Vaccine Reaction Lot # [id number] Given 04/10/2019 Influenza Virus Vaccine, Recombinant [id number] D[place], [place] [address] Given 05/25/2018 Influenza Vac, Quadriv[place], [place] [address] Given 04/28/2016 Influenza Vac, Quadriv[place], [place] [address] Given 07/29/2015 Tdap Tetanus, W Pertussis [id number] 23612 Given 03/25/2015 Influenza Vac, Quadrivalent, Slit [id number] [address] Given 05/03/2014 DO Not Use Split Influenza Virus [id number] Vaccine 43635 Given 05/24/2013 DO Not Use Split Influenza Virus [id number] Vaccine 77885 Given 04/08/2011 DO Not Use Split Influenza Virus [id number] Vaccine 11892 Given 05/12/2010 DO Not Use Split Influenza Virus [id number] Vaccine 92829 Given 08/09/2009 DO Not Use Split Influenza Virus TCHD [id number] Vaccine 10481 Given 06/28/2009 H1N1 Virus Vaccine [id number] 88442 Given 06/28/2009 H1N1 Immunization Intramuscular/Intranasal W Counseling 91787 Given 06/14/2009 Pneumococcal Immunization [id number] 69318 Given 06/06/2008 DO Not Use Split Influenza Virus [id number] Vaccine 91555 Given 02/12/2005 Td Immunization, For Use In Individuals 7 Years Or Older Vital Signs Date Vital Result Comment 05/15/2019 1:49pm BP Systolic 106 mmHg BP Diastolic 80 mmHg Heart Rate 78 /min Body Temperature 98.4 F Respiratory Rate 16 /min Height 66 inches 5'6" measured Weight 203.00 lb BMI (Body Mass Index) 32.8 kg/m2 04/10/2019 9:30am BP Systolic 120 mmHg BP Diastolic 88 mmHg Heart Rate 60 /min Body Temperature 97.7 F Respiratory Rate 12 /min Height 66 inches 5'6" measured Weight 201.00 lb BMI (Body Mass Index) 32.4 kg/m2 Results Test Date Facility Test Result H/L Range Note CBC Auto Diff 04/07/2019 [facility] White Blood Count 4.9 10^3/uL Normal 3.5- [...] Cells % 0.1 Comp Metabolic Panel 04/07/2019 [facility] Sodium 138 mmol/L Normal 135-145 Potassium 4.3 [...] 83.2 >60 1 Laboratory test finding 04/07/2019 [facility] LDH 119 U/L Low 140-271 Iron & Iron Binding Capacity 04/07/2019 [facility] Iron 129 g/dL Normal 50- 212 Unsaturated Iron Binding < 294 g/dL Total Iron Binding Capacity 309 g/dL Normal 250-450 Transferrin 221 mg/dL Normal 203-362 % Iron Saturation 42 % Normal 15-55 Laboratory test finding 04/07/2019 [facility] Cortisol 13.01 g/dL 2 TSH (Thyroid Stim Horm) 2.32 mcIU/mL Normal 0.34-5.60 T3 Free 3.00 pg/mL Normal 2.5-3.9 Free T4 (Free Thyroxine) 0.95 ng/dL Normal 0.61-1.12 Ferritin 42.4 ng/mL Normal 11-307 Vitamin D Total 25(Oh) 35.8 ng/mL Normal 20-50 3 CKMB 04/07/2019 [facility] CKMB ng/mL 4.5 ng/mL Normal 0.6-6.3 Laboratory test finding 04/07/2019 [facility] Acth 23 pg/mL 4 Dhea Sulfate 42 g/dL 16-195 5 Ehrlichia Antibody 04/07/2019 [facility] Anaplasma phagocytophila <1:64 titer < 1:64 6 Panel IgG Ehrlichia chaffeensis IgG AB <1:64 titer <1:64 7 Laboratory test 04/07/2019 [facility] Methylmalonic Acid 0.09 nmol/mL <=0.40 8 finding Mma Laboratory test 11/29/2018 [facility] Trans Growth Factor 3407 pg/mL Abnormal 3465-47486 9 finding beta, S 1 Because ethnic data is [...] of hypercalciuria) >80 ng/mL (toxicity possible) 4 REFERENCE VALUE 7.2-63 (a.m. collection) Test Performed by: [facility] [place] [address] Chain Maker Machine: Talib Bright M.D. Ph.D.; CLIA# [id number] 5 Test Performed by: [place] [address] Chain Maker Machine: Talib Bright M.D. Ph.D.; CLIA# [id number] 6 ADDITIONAL INFORMATION This test was developed using an analyte specific reagent. Its performance characteristics were determined by [facility] in a manner consistent with CLIA requirements. This test has not been cleared or approved by the U.S. Food and Drug Administration. 7 ADDITIONAL INFORMATION This test was developed using an analyte specific reagent. Its performance characteristics were determined by [facility] in a manner consistent with CLIA requirements. This test has not been cleared or approved by the U.S. Food and Drug Administration. Test Performed by: [facility] - [facility] [address] [place] [address] Chain Maker Machine: Talib Bright M.D. Ph.D.; CLIA# [id number] 8 ADDITIONAL INFORMATION This test was developed and its performance characteristics determined by [facility] in a manner consistent with CLIA requirements. This test has not been cleared or approved by the U.S. Food and Drug Administration. Test Performed by: [facility] - [address] [address] Chain Maker Machine: Talib Bright M.D. Ph.D.; CLIA# [id number] 9 INTERPRETIVE INFORMATION: Transforming Growth Factor beta, Serum Results are intended for research purposes or in attempts to understand the pathophysiology of unusual immune or inflammatory disorders. Test developed and characteristics determined by [facility]. See Compliance Statement B: [employer] Performed by [facility], [address] [place] [id number] [email or web address] Rafa Munson MD - Lab. Director Test Performed by: [facility] [address] [place] [id number] Procedures Date Code Description Status 11/14/2018 [id number] Mammogram Completed 06/25/2017 [id number] Mammogram Completed 05/18/2016 [id number] Mammogram Completed 09/12/2015 [id number] Colonoscopy Completed 05/17/2015 [id number] Mammogram Completed 05/14/2014 [id number] Mammogram Completed 09/29/2013 [id number] Mammogram Completed 03/07/2013 [id number] Mammogram Completed 10/21/2011 [id number] Mammogram Completed 04/05/2008 [id number] Mammogram Completed 12/30/2006 [id number] Mammogram Completed Medical Devices Description No Information Available Encounters Type Date Location Provider Dx Diagnosis Office Visit 04/10/2019 Main Office Lizzy Rajan R01.1 Cardiac murmur, 9:30a LYLE Peck unspecified R53.82 Chronic fatigue, unspecified Z23 Encounter for immunization Office Visit 01/23/2019 9:20a Main Office Valentin Kirkland M.D. M54.5 Low back pain R53.83 Other fatigue Assessments Date Code Description Provider 05/15/2019 G47.30 Sleep apnea, unspecified Lizzy Peck NP 05/15/2019 R00.2 Palpitations Lizzy Peck NP 04/10/2019 R01.1 Cardiac murmur, unspecified Lizzy Peck NP 04/10/2019 R53.82 Chronic fatigue, unspecified Lizzy Peck NP 04/10/2019 Z23 Encounter for immunization Lizzy Peck NP 01/23/2019 M54.5 Low back pain Valentin Kirkland M.D. 01/23/2019 R53.83 Other fatigue Valentin Kirkland M.D. Plan of Treatment Future Appointment(s):05/27/2019 10:40 am - Valentin Kirkland M.D. at Main Aforiv1007/17/2019 8:15 am - Valentin Kirkland M.D. at Main Cmmjsr6807/31/2019 1:20 pm - Valentin Kirkland M.D. at Main Dtriad6705/15/2019 - Lizzy Peck, LYLEG47.30 Sleep apnea, unspecifiedComments:followed by sleep clinic - MD Anum - adjustments being made, improvements in reduction of apneic events over the last week but the spasm feeling not [id number] PalpitationsNew Medication:24 Hour Holter Monitor - apply for 24 hours - dx r00.2New Xrays:Holter Monitor, Ordered: 05/15/19Comments:Make sure you are drinking at least 8-10 glasses of water a dayReturn or seek medical care for the following: numbness or tingling of your extremitieschest painsevere headachechange in your visionchange in speech loss of consciousness Notify office if worsening symptoms or failure to improve. we will arrange a holter monitor for you to make sure there isn't an electrical abnormality in your heartcausing the sensation in your chestAllComments:Medication Management Patient Understands medications he 's taking? [...] goals? Yes No If Yes, please describe: disease process, comorbid conditions, activity restrictions, autonomic considerations 4. Self-Management goals as described to the patient: Yes NoAs always, we strongly encourage a healthy diet and making physical activity a part of your every day life. If you have questions about how or where to start , please contact the office. Functional Status Description No Information Available Mental Status Description No Information Available Referrals Refer to Reason for Referral Status Appt Date Kiesha Greenberg MD [facility]CHO. LT Sent [address] [place] [address] [phone]
[2019-05-22 12:35] VITALS: BP 131/63
[2019-05-22] MEDS ORDERED: Ondansetron ODT TAB* 4 MG SL PRN (13:03)
--- NOTE | 2019-05-22 13:12 | UC ---
Dizzy HPI HPI Summary: Patient is a 54yo female with chronic fatigue syndrome presenting with for complaints of dizziness and tinnitus in L ear since yesterday morning that has progressively worsened since this morning. Patient states she "felt ok" at her appointment this morning to have a holter monitor placed, but that her symptoms worsened right after. Holter monitor placed for "chest spasms" that are "difficult to explain." States cardiac echo was normal last week. Patient states the room spins and she is nauseous. States symptoms are worse when she is moving and slightly improved when sitting still. Patient notes "clogged feeling" in L ear. States nausea began after eating a snack this morning and "comes in waves." Notes chills earlier. Denies fever. Denies vomiting. Denies abdominal pain and diarrhea. Denies SOB, chest pain, and difficulty breathing. Denies muscle weakness. Denies headache. Patient takes alprazolam and zoloft. Patient also adds that she has reactions to mold and believes she came into contact with mold while at the mall yesterday. She thinks this may be a source of her symptoms. Also notes she takes cholecystyramine to "bind the mold in her body." She is also in a wheelchair to avoid raising her HR since having holter placed. - History Of Current Complaint Chief Complaint: UCDizziness Stated Complaint: DIZZY Hx Last Menstrual Period: 3 weeks Onset/Duration: Sudden Onset, Lasting Days Pain Intensity: 0 - Allergies/Home Medications Allergies/Adverse Reactions: Allergies Allergy/AdvReac Type Severity Reaction Status Date / Time shrimp Allergy Rash Verified 05/22/19 12:35 Wheat Allergy Unknown itching , Uncoded 05/22/19 12:35 headache PMH/Surg Hx/FS Hx/Imm Hx - Additional Past Medical History Additional PMH: Chronic fatigue syndrome - Surgical History Surgical History: Yes Surgery Procedure, Year, and Place: tonsillectomy,endometriosis UTERINE ABLASION. 04/25 HYSTERECTOMY/BLADDER LIFT. 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 BILATERAL CATARACTS 02/24 - Social History Alcohol Use: None Substance Use Type: None Smoking Status (MU): Never Smoked Tobacco Review of Systems All Other Systems Reviewed And Are Negative: Yes Constitutional: Positive: Chills Eyes: Positive: Other. Negative: Blurred Vision, Diplopia ENT: Positive: Other - tinnitus L ear. clogged feeling of L ear Respiratory: Positive: Negative. Negative: Shortness Of Breath Cardiovascular: Positive: Negative. Negative: Palpitations, Chest Pain Gastrointestinal: Positive: Nausea. Negative: Abdominal Pain, Vomiting, Diarrhea Genitourinary: Positive: Negative Motor: Negative: Weakness Neurovascular: Positive: Negative Musculoskeletal: Positive: Negative Neurological: Positive: Negative. Negative: Headache, Weakness, Paresthesia, Numbness Physical Exam Triage Information Reviewed: Yes Appearance: Well-Appearing, No Pain Distress, Well-Nourished, Other: - patient in wheelchair Vital Signs: Initial Vital Signs Temp 98.4 F 05/22/19 12:28 Pulse 65 05/22/19 12:28 Resp 18 05/22/19 12:28 BP 131/63 05/22/19 12:28 Pulse Ox 100 05/22/19 12:28 Vital Signs Reviewed: Yes Eyes: Positive: Conjunctiva Clear, Other: - PERRLA. EOM intact. no nystagmus noted ENT Exam: Normal ENT: Positive: Hearing grossly normal, Pharynx normal, TMs normal - b/l cerumen impaction. irrigation performed to reveal normal intact TMs bilaterally Neck exam: Normal Neck: Positive: Supple, Nontender, No Lymphadenopathy Respiratory Exam: Normal Respiratory: Positive: Lungs clear, Normal breath sounds, No respiratory distress Cardiovascular Exam: Normal Cardiovascular: Positive: RRR Musculoskeletal: Positive: Strength Intact Neurological Exam: Other - cranial nerves II-XII intact Neurological: Positive: Alert Psychological: Positive: Age Appropriate Behavior Dizzy Course/Dx - Course Course Of Treatment: Patient noted some relief of nausea and vertigo after b/l ear irrigation. Patient did not receive mediation for nausea, as there were interactions with her home medications. She voiced feeling better and getting her appetite back. Informed patient of possibilities of vertigo source and that the vertigo should gradually resolve over the next day or so. Informed her that the reglan she takes for headaches may help alleviate nausea. Instructed to follow up with pcp for persistent symptoms or to go to ED if they worsen. Patient voiced understanding and agreed with treatment plan. - Differential Dx/Diagnosis Differential Diagnosis/HQI/PQRI: Benign Paroxysmal Positional Vertigo, Meniere' s Disease Provider Diagnosis: Vertigo, Nausea Discharge ED - Sign-Out/Discharge Documenting (check all that apply): Patient Departure All imaging exams completed and their final reports reviewed: No Studies - Discharge Plan Condition: Stable Disposition: HOME Patient Education Materials: Vertigo (ED) Referrals: Valentin Kirkland MD [Primary Care Provider] - If Needed Additional Instructions: As discussed, it is unclear what the cause of your vertigo is today. It should resolve on its own within the next day. The reglan that you take may help alleviate nausea. Be sure to maintain your fluid intake. Follow up with your primary care physician if your symptoms persist. Go to the emergency room if you experience worsening symptoms. - Billing Disposition and Condition Condition: STABLE Disposition: Home
== END 2019-05-22 13:45 | disposition home or self-care (01) ==
LOC: UCEAST 12:24
DX: R42 Dizziness and giddiness (principal); R11.0 Nausea; Z91.013 Allergy to seafood; Z91.018 Allergy to other foods
CPT/HCPCS: 99213; G0463

== ENCOUNTER 2019-05-22 17:40 | Emergency (ER) | payer OTHER ==
[2019-05-22 19:06] VITALS: BP 119/67
--- NOTE | 2019-05-22 19:16 | ED ---
Dizziness - HPI Summary HPI Summary: Patient is a 54 y/o F presenting to the ED for a chief complaint of dizziness. Patient reports the most recent episode of dizziness began while walking at a mall, which she attributes to possible mold at the mall. The dizziness initially began about one year ago when she found mold at her house. Patient was previously seen at [facility] for the dizziness where she was diagnosed with vertigo and told to go to the ED for worsening symptoms. Patient reports the dizziness improved while at [facility], but has worsened since leaving. On the morning of 05/22/19, patient also admits dry mouth, decreased fluid intake, headache, chills, shaking, nausea, and abdominal cramping. The dizziness worsens with leaning over or with movement. Patient also has left- sided lower back pain that she describes as spasms. Patient denies fever, chest pain, shortness of breath, or vomiting. Patient has a PMHx of chronic fatigue syndrome and chronic inflammatory response. - History Of Current Complaint Chief Complaint: EDDizziness Stated Complaint: ABD PAIN/NAUSEA PER PT Time Seen by Provider: 05/22/19 19:06 Hx Obtained From: Patient Onset/Duration: Still Present Timing: Constant Severity Initially: Moderate Severity Currently: Moderate Character: Dizzy Aggravating Factor(s): Other - Leaning over or with movement Alleviating Factor(s): Nothing Associated Signs And Symptoms: Positive: Nausea, Chills. Negative: Vomiting, Chest Pain, SOB, Fever - Allergies/Home Medications Allergies/Adverse Reactions: Allergies Allergy/AdvReac Type Severity Reaction Status Date / Time shrimp Allergy Rash Verified 05/22/19 17:46 Wheat Allergy Unknown itching , Uncoded 05/22/19 12:35 headache PMH/Surg Hx/FS Hx/Imm Hx Previously Healthy: Yes Endocrine/Hematology History: Reports: Other Endocrine/Hematological Disorders - Lyme disease 06/2012 Denies: Hx Diabetes Cardiovascular History: Denies: Hx Hypertension, Hx Pacemaker/ICD Respiratory History: Reports: Hx Asthma, Hx Seasonal Allergies, Hx Sleep Apnea GI History: Reports: Hx Gastroesophageal Reflux Disease - HOMEOPATHIC MEDICATION AND TINCTURE FOR History: Denies: Hx Dialysis, Hx Renal Disease Musculoskeletal History: Reports: Hx Arthritis - KNEES AND FEET Sensory History: Reports: Hx Cataracts - BILATERAL, Hx Contacts or Glasses - GLASSES Denies: Hx Legally Blind, Hx Deafness, Hx Hearing Aid Opthamlomology History: Reports: Hx Cataracts - BILATERAL, Hx Contacts or Glasses - GLASSES Denies: Hx Legally Blind EENT History: Denies: Hx Deafness Neurological History: Reports: Other Neuro Impairments/Disorders - Vertigo, chronic fatigue syndrome Psychiatric History: Denies: Hx Panic Disorder - Cancer History Hx Chemotherapy: No Hx Radiation Therapy: No - Surgical History Surgical History: Yes Surgery Procedure, Year, and Place: tonsillectomy,endometriosis UTERINE ABLASION. 04/25 HYSTERECTOMY/BLADDER LIFT. 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 BILATERAL CATARACTS 02/24 Hx Anesthesia Reactions: Yes - DIFFICULTY GETTING BLOOD PRESSURE UP AFTER COLONOSCOPY-2015 Infectious Disease History: No Infectious Disease History: Denies: Traveled Outside the [place] in Last 30 Days - Family History Known Family History: Negative: Diabetes - Social History Occupation: Unemployed Lives: With Family Alcohol Use: None Hx Substance Use: No Substance Use Type: Reports: None Hx Tobacco Use: No Smoking Status (MU): Never Smoked Tobacco Review of Systems Positive: Chills, Other - Positive decreased fluid intake and shaking. Negative : Fever Positive: Other - Positive dry mouth Negative: Chest Pain Negative: Shortness Of Breath Positive: Abdominal Pain - Described as cramping, Nausea. Negative: Vomiting Positive: Myalgia - Left-sided lower back Neurological: Other - Positive dizziness and lightheadedness Positive: Headache All Other Systems Reviewed And Are Negative: Yes Physical Exam - Summary Physical Exam Summary: Appearance: Well-appearing, Well-nourished, lying in bed comfortably Skin: Warm, dry, no obvious rash Eyes: sclera anicteric, no conjunctival pallor ENT: mucous membranes moist, pharynx appears normal Neck: Supple, nontender Respiratory: Clear to auscultation, no signs of respiratory distress Cardiovascular: Normal S1, S2. No murmurs. Normal distal pulses in tibial and radial bilaterally. Abdomen: Soft, nontender, normal active bowel sounds present Musculoskeletal: Normal, Strength/ROM Intact Neurological: A&Ox3, awake and alert, mentation is normal, speech is fluent and appropriate Psychiatric: affect is normal, does not appear anxious or depressed Triage Information Reviewed: Yes Vital Signs On Initial Exam: Initial Vitals Temp Pulse Resp BP Pulse Ox 99.0 F 73 18 126/74 97 05/22/19 17:43 05/22/19 17:43 05/22/19 17:43 05/22/19 17:43 05/22/19 17:43 Vital Signs Reviewed: Yes Procedures - Sedation Patient Received Moderate/Deep Sedation with Procedure: No Diagnostics - Vital Signs Vital Signs Temp Pulse Resp BP Pulse Ox 05/22/19 19:05 89 16 119/67 95 05/22/19 17:43 99.0 F 73 18 126/74 97 - Laboratory Lab Statement: Any lab studies that have been ordered have been reviewed, and results considered in the medical decision making process. Dizzy Course/Dx - Course Course Of Treatment: Patient is a 54 y/o F presenting to the ED for a chief complaint of dizziness. Patient reports the most recent episode of dizziness began while walking at a mall, which she attributes to possible mold at the mall. The dizziness initially began about one year ago when she found mold at her house. Patient was previously seen at [facility] for the dizziness where she was diagnosed with vertigo and told to go to the ED for worsening symptoms. Patient reports the dizziness improved while at [facility], but has worsened since leaving. On the morning of 05/22/19, patient also admits dry mouth, decreased fluid intake, headache, chills, shaking, nausea, and abdominal cramping. The dizziness worsens with leaning over or with movement. Patient also has left-sided lower back pain that she describes as spasms. Patient denies fever, chest pain, shortness of breath, or vomiting. Patient has a PMHx of chronic fatigue syndrome and chronic inflammatory response. On exam, unremarkable findings. Patient will be discharged with a diagnosis of nausea, vomiting, and vertigo. Follow up with PCP in 3 days. - Diagnoses Provider Diagnoses: Nausea and vomiting, Vertigo Discharge ED - Sign-Out/Discharge Documenting (check all that apply): Patient Departure - Discharge - Discharge Plan Condition: Good Disposition: HOME Prescriptions: Dicyclomine CAP* [Bentyl CAP*] 10 mg PO TID PRN #15 cap PRN Reason: abdominal cramping Meclizine TAB* [Antivert 12.5 TAB*] 25 mg PO TID PRN #15 tab PRN Reason: Dizziness Patient Education Materials: Vertigo (ED), Acute Nausea and Vomiting (ED) Referrals: Valentin Kirkland MD [Primary Care Provider] - 3 Days (if not improving) Additional Instructions: I suspect your constellation of symptoms adds up to a viral infection, this is well known to cause vertigo as the virus disrupts the inner ear. It is treated symptomatically and resolves on its own, usually in a few days to a week, though occasionally longer. Use the prescribed medications to help control the symptoms. - Billing Disposition and Condition Condition: GOOD Disposition: Home - Attestation Statements Document Initiated by Lenin: Yes Documenting Scribe: Kerry Durán Provider For Whom Lenin is Documenting (Include Credential): Akbar Venegas MD Scribe Attestation: Kerry Finn, scribed for Akbar Venegas MD on 05/25/19 at 1937. Scribe Documentation Reviewed: Yes Provider Attestation: The documentation as recorded by the Kerry sellers accurately reflects the service I personally performed and the decisions made by , Akbar Venegas MD Status of Scrcarmela Document: Viewed
== END 2019-05-22 19:29 | disposition home or self-care (01) ==
LOC: ED 17:40
DX: R42 Dizziness and giddiness (principal); R11.2 Nausea with vomiting, unspecified; K21.9 Gastro-esophageal reflux disease without esophagitis; Z90.710 Acquired absence of both cervix and uterus
CPT/HCPCS: 99282

== ENCOUNTER 2019-08-09 10:27 | Emergency (ER) | payer OTHER ==
[2019-08-09] MEDS ORDERED: diPHENhydraMINE IV* 50 MG/ML 1 ml VIAL (BENADRYL) IV ONE (10:32)
[2019-08-09] MEDS ORDERED: NS 0.9% 1000 ML** 1,000 ML IV ONE ×2 (10:32→11:26)
--- OUTSIDE RECORDS SUMMARY | 2019-08-09 10:35 | XMS REPORT | Continuity of Care Document ---
:1965 External Reference #:[id number] Author Name Barney Mcpherson M.D. Address [address] [place] [address] Care Team Providers Name Role Phone Valentin Kirkland M.D. - Family Medicine Care Team Information Bow Stapler Problems Active Problems Provider Date Sleep apnea Onset: Migraine Onset: Tear film insufficiency Dana Moreno O.D. Onset: 11/28/2014 Internal hordeolum Homa Yi O.D. Onset: 01/07/2015 Nuclear senile cataract Dana Moreno O.D. Onset: 02/07/2015 Superficial punctate keratitis Dana Moreno O.D. Onset: 05/22/2015 Conjunctivitis Dana Moreno O.D. Onset: 06/03/2015 Combined form of senile cataract Dana Moreno O.D. Onset: 08/12/2015 Keratoconjunctivitis sicca, not specified Dana Moreno O.D. Onset: 07/2015 as Sjogren's Angular blepharoconjunctivitis Homa Yi O.D. Onset: 09/10/2015 Cortical senile cataract Homa Yi O.D. Onset: 12/27/2015 Posterior subcapsular polar senile Evan Ramirez M.D. Onset: 01/07/2016 cataract Presence of intraocular lens Evan Ramirez M.D. Onset: 02/06/2016 Acute hemorrhagic conjunctivitis Homa Yi O.D. Onset: 08/21/2016 Gastroesophageal reflux disease Onset: Myopia Homa Yi O.D. Onset: 08/19/2018 Presbyopia Homa Yi O.D. Onset: 08/19/2018 Regular astigmatism Homa Yi O.D. Onset: 08/19/2018 Chronic inflammatory disorder Onset: Chronic fatigue syndrome Onset: Sudden hearing loss Onset: Vertigo Onset: Acute hemorrhagic conjunctivitis Homa Yi O.D. Onset: 06/10/2019 Nystagmus Barney Mcpherson M.D. Onset: 07/11/2019 Alternobaric vertigo Barney Mcpherson M.D. Onset: 07/11/2019 Social History Type Date Description Comments Sex Unknown ETOH Use Denies alcohol use Tobacco Use Start: Unknown Patient has never smoked Recreational Drug Use Denies Drug Use Smoking Status Reviewed: 07/11/19 Patient has never smoked Allergies, Adverse Reactions, Alerts Active Allergies Reaction Severity Comments Date Shrimp Hives Severe 06/10/2019 Wheat Gastro, Heart Severe 06/10/2019 Medications Active Medications SIG Qnty Indications Ordering Date Provider Systane Nighttime every night Dana Mckoy 02/25/2017 Smitha Moreno Ointment Restasis instill 1 drop 180units Homa Yi, 04/16/2016 0.05% Emulsion into both eyes O.D. twice a day Warm Compresses as needed Dana Mckoy 08/11/2015 Smitha Moreno Metoclopramide HCL take 1 tablet Unknown 10mg once daily if Tablets needed Sertraline HCL 1/2 daily Unknown 25mg Tablets Omeprazole take 1 capsule Unknown 20mg Capsules by mouth once DR daily Valacyclovir HCL Unknown 1gm Tablets History Medications Maxitrol 1 drop both 10ml B30.3 Homa Yi, 06/10/2019 - [id number] eyes three O.D. 07/10/2019 Suspension times a day Immunizations Description No Information Available Vital Signs Date Vital Result Comment 05/22/2015 4:44pm BP Systolic 108 mmHg BP Diastolic 64 mmHg Heart Rate 65 /min Results Description No Information Available Procedures Date Code Description Status 06/10/2019 06977 Est Patient Intermediate Exam Completed Medical Devices Description No Information Available Encounters Description No Information Available Assessments Date Code Description Provider 07/11/2019 H81.312 Aural vertigo, left ear Barney Mcpherson M.D. 06/10/2019 B30.3 Acute epidemic hemorrhagic conjunctivitis Homa Yi O.D. (enteroviral) Plan of Treatment Future Appointment(s):08/22/2019 10:00 am - Homa Yi O.D. at Evan Ramirez MD, 07/11/2019 - Barney Mcpherson M.D.H81.312 Aural vertigo, left earComments:Smoking can increase the risk of developing or worsening any eye related disease, as well as affect your overall health. If you are a smoker, we strongly recommend that you quit.If you are not a smoker, we strongly recommend that you do not start. YOUR EYE EXAM IS HEALTHY. I SUSPECT YOUR SYMPTOMS ARE RELATED TO THE INFLAMMATION OF THE LEFT EYE.THIS CONDITION OFTEN IMPROVES GRADUALLY OVER WEEKSFollow up:1 Month Follow Up (ok to cxl if better) At your next visit, we are not planning to dilate your eyes. However, if you have any changes in your vision or new symptoms, there are certain situations that require us to dilate your eyes. If Dr. Mcpherson requests any additional testing, that may require extra time. If you have any questions before your next appointment, please call our office at . Functional Status Description No Information Available Mental Status Description No Information Available Referrals Description No Information Available
--- OUTSIDE RECORDS SUMMARY | 2019-08-09 10:35 | XMS REPORT | Continuity of Care Document ---
:1965 External Reference #:[id number] Author Name Mello Davies MD Address [address] [place] [address] Care Team Providers Name Role Phone Valentin Kirkland MD - Family Medicine Care Team Information Joiner Problems Description No Information Available Social History Type Date Description Comments Sex Unknown Tobacco Use Start: Unknown Never Smoked Cigarettes Tobacco Use Start: Unknown End: Unknown current.no Tobacco Use Start: Unknown End: Unknown current.no Smokeless Tobacco current.no ETOH Use does not use alcohol Allergies, Adverse Reactions, Alerts Description No Known Drug Allergies Medications Active Medications SIG Qnty Indications Ordering Date Provider Advair Diskus 1 puff bid 2units Unknown 250/50 Misc Alprazolam take 1/2 to 1 Unknown 0.25mg Tablets tablet by mouth twice a day if needed for anxiety maximum daily dose of 2 Cholestyramine Take Contents Of Unknown 4gm Packet 1 Packet By Mouth as Directed 3-4 Times A Day Sertraline HCL 1/2 tab daily Unknown 25mg Tablets Melatonin 1 tab by mouth Unknown 3mg Capsules every at bedtime Reglan 2 tabs three Unknown 5mg Tablets times a day as needed Thermotabs Unknown Tablets Synospin Nasal [place] Unknown Valacyclovir HCL as directed Unknown 1gm Tablets Immunizations Description No Information Available Vital Signs Date Vital Result Comment 06/22/2019 11:37am Weight 203.00 lb Weight 92.081 kg Height 66 inches 5'6" Height in cm's 167.6 cm BMI (Body Mass Index) 32.8 kg/m2 06/05/2019 3:52pm Weight 203.00 lb Weight 92.081 kg Height 66 inches 5'6" Height in cm's 167.6 cm BMI (Body Mass Index) 32.8 kg/m2 Results Test Acquired Date Facility Test Result H/L Range Note Laboratory test 06/22/2019 [facility] Fungal <pending > finding c/o Department [place] [address] Bottles [phone] Fungus Smear SEE RESULT BELOW 1 1 SEE RESULT BELOW Name: JULISA COLLIER : [address]: Justin Davies MD Acct: [id number] Unit: [id number] AGE: 54 Location: [facility] Re06/22/19 SEX: F Status: REG REF SPEC: [id number] SANNA: 06/22/191154 [facility] DR: Justin Davies MD REQ: [id number] RECD: 06/22/19 STATUS: RES _ SOURCE: [facility]: ORDERED: Fungal Smear, Fungal - Other COMMENTS: [id number] Procedure Result Reported Site Fungal Smear Final 06/23/19- 1230 ML Fungal Findings Negative Fungal Cult - Other Sources PENDING * ML - Main Lab . END OF REPORT DEPARTMENT OF PATHOLOGY, [address] [place] [address] Jose Francisco Car M.D. Director [facility] # [id number] Procedures Date Code Description Status 06/13/2019 11505 Labyrinthectomy, [place] Completed 06/07/2019 17670 Tympanometry Completed 06/07/2019 99193 Comprehensive Audiogram Completed Medical Devices Description No Information Available Encounters Type Date Location Provider Dx Diagnosis Office Visit 06/05/2019 [facility] Mello Davies H90.5 Unspecified 3:30p 07/12/07 sensorineural hearing loss Assessments Date Code Description Provider 06/29/2019 H90.42 Sensorineural hearing loss, unilateral, left Mello Davies MD ear, with unrestricted hearing on the contralateral side 06/22/2019 H90.42 Sensorineural hearing loss, unilateral, left Mello Davies MD ear, with unrestricted hearing on the contralateral side 06/13/2019 H90.42 Sensorineural hearing loss, unilateral, left Mello Davies MD ear, with unrestricted hearing on the contralateral side 06/13/2019 H90.5 Unspecified sensorineural hearing loss Mello Davies MD 06/07/2019 H90.42 Sensorineural hearing loss, unilateral, left HÉCTOR Humphries ear, with unrestricted hearing on the contralateral side 06/05/2019 H90.5 Unspecified sensorineural hearing loss Mello Davies MD Plan of Treatment Future Appointment(s):07/31/2019 11:15 am - Mello Davies MD at [facility] 11:00 am - HÉCTOR Humphries at [facility] 07/12/811 - Mello Davies MDH90.42 Sensorineural hearing loss, unilateral, left ear, with unrestricted hearing on the contralateral sideComments:Patient is to return weekly for installation of Decadron.H90.5 Unspecified sensorineural hearing loss Functional Status Description No Information Available Mental Status Description No Information Available Referrals Description No Information Available
--- OUTSIDE RECORDS SUMMARY | 2019-08-09 10:35 | XMS REPORT | Continuity of Care Document ---
:1965 External Reference #:[id number] Author Name Mello Davies MD Address [address] [place] [address] Care Team Providers Name Role Phone Valentin Kirkland MD - Family Medicine Care Team Information [facility] Manager Problems Description No Information Available Social History [...] as needed Thermotabs Unknown Tablets Synospin Nasal [place] Unknown Immunizations Description No Information Available Vital Signs Date Vital Result Comment 07/31/2019 3:37pm Weight 203.00 lb Weight 92.081 kg Height 66 inches 5'6" Height in cm's 167.6 cm BMI (Body Mass Index) 32.8 kg/m2 06/22/2019 11:37am Weight 203.00 lb Weight 92.081 kg Height 66 inches 5'6" Height in cm's 167.6 cm BMI (Body Mass Index) 32.8 kg/m2 Results Test Acquired Date Facility Test Result H/L Range Note Laboratory test 06/22/2019 [facility] Fungal <pending > finding c/o Department [place] [address] Bottles [phone] Fungus Smear SEE RESULT BELOW 1 1 SEE RESULT BELOW Name: JULISA COLLIER : [address]: Justin Davies MD Acct: [id number] Unit: [id number] AGE: 54 Location: [facility] Re06/22/19 SEX: F Status: REG REF SPEC: [id number] SANNA: 06/22/19-[address] [facility] [address]: Justin Davies MD REQ: [id number] RECD: 06/22/19 STATUS: COMP _ SOURCE: [facility]: ORDERED: Fungal Smear, Fungal - Other COMMENTS: [id number] Procedure Result Reported Site Fungal Smear Final 06/23/19- 1230 ML Fungal Findings Negative Fungal Cult - Other Sources Final 07/24/19- 1103 ML No Growth Week 4 * ML - Main Lab . END OF REPORT DEPARTMENT OF PATHOLOGY, [address] [place] [address] Jose Francisco Car M.D. 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, left ear Office Visit 06/05/2019 [place],Mello Wang H90.5 Unspecified 3:30p 07/12/07 sensorineural hearing loss Assessments Date Code Description Provider 07/31/2019 H90.42 Sensorineural hearing loss, unilateral, left Mello Davies MD ear, with unrestricted hearing on the contralateral side 07/31/2019 H72.02 Central perforation of tympanic membrane, left Mello Davies MD ear 06/29/2019 H90.42 Sensorineural hearing loss, unilateral, left [...] 06/07/2019 H90.42 Sensorineural hearing loss, unilateral, left Bridget Pinto AUFranco ear, with unrestricted hearing on the contralateral side 06/05/2019 H90.5 Unspecified sensorineural hearing loss Mello Davies MD Plan of Treatment 07/31/2019 - Mello Davies MDH90.42 Sensorineural hearing loss, unilateral, left ear, with unrestricted hearing on the contralateral sideComments:Patient is here for follow-up no improvement after transtympanic steroid injections, recheck back when necessary for follow-up one year's time. 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
--- OUTSIDE RECORDS SUMMARY | 2019-08-09 10:35 | XMS REPORT ---
:1965 Author Name Yesenia Farmer Address [address] [place] [address] Care Team Providers Name Role Phone Yesenia Farmer Unavailable Unavailable PROBLEMS Type Condition ICD9-CM Code [id number] Code Onset Condition SNOMED Code Dates Status Problem Cystocele, N81.11 Active 642453333 midline Problem Family history of Z80.3 Active 452286072 malignant neoplasm of breast Problem Unspecified R32 Active 151150119 urinary incontinence Problem Excessive and N92.1 Active 10803790 frequent menstruation with irregular cycle Problem Incomplete N81.2 Active 686005564 uterovaginal prolapse ALLERGIES Substance Reaction Event Type Date Status Shrimp hives Drug Allergy Jun, Active wheat rapid HR, flush Drug Allergy Jun, Active ENCOUNTERS Encounter Location Date Diagnosis [address] Oct, [address]BG[address] [place] [id number] [facility] Jun, Family history of malignant OBGYN [facility] neoplasm of breast Z80.3 [place], [place] [id number] [address] Jun, Family history of malignant [address]BGYN [address] [place], neoplasm of breast Z80.3 [place] [id number] [facility] 103 Oct, OBGYN [place] [id number] [address] Oct, Encounter for gynecological OBGYN [address] [place], examination (general) [place] [id number] (routine) without abnormal findings Z01.419 ; Encounter for screening mammogram for malignant neoplasm of breast Z12.31 ; Encounter for screening for malignant neoplasm of colon Z12.11 and Family history of malignant neoplasm of breast Z80.3 [facility] Feb, Family history of malignant OBGYN [facility] neoplasm of breast Z80.3 [place] [id number] [facility] Feb, [place] [id number] [place] [facility] [address] Feb, Family history of malignant [address]BGYN [address] [place] [address], neoplasm of breast Z80.3 [place] [id number] [facility] Feb, [place] [id number] [facility] November, [place]BG[place] [id number] [place] [facility] [address] Aug, Encounter for gynecological OBGYN [address] [place] [address], examination (general) [place] [id number] (routine) without abnormal findings Z01.419 ; Family history of malignant neoplasm of breast Z80.3 ; Encounter for screening mammogram for malignant neoplasm of breast Z12.31 ; Encounter for screening for malignant neoplasm of colon Z12.11 and Unspecified urinary incontinence R32 [facility] Aug, [place] [id number] [facility] 103 Mar, Encounter for screening OBGYN [facility] mammogram for malignant [place], [place] [id number] neoplasm of breast Z12.31 [place] [facility] [address] Feb, Family history of malignant [address] [place] [address], neoplasm of breast Z80.3 [place] [id number] [facility] Aug, Family history of malignant OBGYN [facility] neoplasm of breast Z80.3 [place] [id number] and 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 [place] [facility] Aug, Encounter for gynecological OBGYN [address] [place], examination (general) [place] [id number] (routine) without abnormal findings Z01.419 ; Encounter for screening mammogram for malignant neoplasm of breast Z12.31 ; Encounter for screening for malignant neoplasm of colon Z12.11 and [facility] of [facility] [address] Mar, Genetic susceptibility to OBGYN [address] [place], malignant neoplasm of ovary [place] [id number] Z15.02 ; Family history of malignant neoplasm of breast Z80.3 and Body mass index (BMI) 40.0-44.9, adult Z68.41 [facility] Mar, [place]BG[place] [id number] [facility] Jan, Genetic susceptibility to OBGYN [facility] malignant neoplasm of ovary [place] [id number] Z15.02 ; Family history of malignant neoplasm of breast Z80.3 ; Unspecified urinary incontinence R32 and Body mass index (BMI) 40.0-44.9, adult Z68.41 [facility] Jan, [facility] [place] [id number] Z15.02 [facility] Jul, Family history of malignant OBGYN [facility] neoplasm of breast Z80.3 [place], [place] [id number] and 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 [facility] Jul, Encounter for gynecological OBGYN [facility] examination (general) [place], [place] [id number] (routine) with abnormal findings Z01.411 ; Encounter for screening for malignant neoplasm of cervix Z12.4 ; Encounter for screening mammogram for malignant neoplasm of breast Z12.31 ; Encounter for screening for malignant neoplasm of colon Z12.11 ; 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 ; Family history of malignant neoplasm of breast Z80.3 ; Unspecified urinary incontinence R32 and Body mass index (BMI) 40.0-44.9, adult Z68.41 [facility] Jul, [facility] of ovary [place], [place] [id number] Z15.02 [place] [facility] [address] [place] [address] Jun, Incomplete uterovaginal OBGYN Road [address] [place], prolapse N81.2 ; Cystocele, [place] [id number] midline N81.11 ; Unspecified urinary incontinence R32 ; Excessive and frequent menstruation with irregular cycle N92.1 ; 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 and Incisional hernia without obstruction or gangrene K43.2 [facility] May, [place]BG[place] [id number] [place] [facility] [address] [place] [address] Apr, Incomplete uterovaginal OBGYN [address] [place], prolapse N81.2 ; Cystocele, [place] [id number] midline N81.11 ; Unspecified urinary incontinence R32 ; Excessive and frequent menstruation with irregular cycle N92.1 ; 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 ; Painful micturition, unspecified R30.9 and Incisional hernia without obstruction or gangrene K43.2 [facility] Apr, [facility] neoplasm of ovary [place], [place] [id number] Z15.02 ; Body mass index (BMI) 40.0-44.9, adult Z68.41 and Family history of malignant neoplasm of breast Z80.3 [place] [facility] [address] [place] [address] Apr, Incisional hernia without OBGYN Road [address] [place], obstruction or gangrene [place] [id number] K43.2 [facility] Apr, [place] [id number] [facility] Apr, OBG[place] [id number] [facility] Apr, OBG[place] [id number] [address] Apr, Medical Center [place] [id number] [facility] Apr, [place] [id number] [place] [facility] [address] [place] [address] Apr, Incomplete uterovaginal OBGYN Road [address] [place], prolapse N81.2 ; Cystocele, [place] [id number] midline N81.11 ; Unspecified urinary incontinence R32 ; Excessive and frequent menstruation with irregular cycle N92.1 and 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 [facility] Mar, Stenosis of cervix 622.4 ; [facility] UTERINE PROLAPSE 618.1 and [place], [place] [id number] Menometrorrhagia 626.2 [facility] Mar, [place], [place] [id number] [place] [facility] [address] [place] [address] [place] Mar, UTERINE PROLAPSE [address] [place] [id number] [facility] Feb, [place] [id number] [facility] Feb, UTERINE PROLAPSE 618.1 [place] [id number] [place] [facility] [address] [place] [address] Feb, UTERINE PROLAPSE 618.1 ; OBGYN [address] [place], Cystocele, midline 618.01 [place] [id number] and URINARY INCONTINENCE NOS 788.30 [place] [facility] [place] Jan, UTERINE PROLAPSE 618.1 ; OBGYN [address] [place], Cystocele, midline 618.01 [place] [id number] and URINARY INCONTINENCE NOS 788.30 [facility] Jan, [place] [id number] [facility] [address] [place] [address] [place] Jan, UTERINE PROLAPSE 618.1 ; OBGYN [address] [place], Cystocele, midline 618.01 ; [place] [id number] Urinary frequency 788.41 and URINARY INCONTINENCE NOS 788.30 [facility] Oct, Ovarian cyst NOS 620.2 and [facility] FAMILY HX-BREAST MALIG [place], [place] [id number] V16.3 [facility] 103 Oct, Ovarian cyst NOS 620.2 [place] [id number] [facility] Sep, [place] [id number] [facility] Sep, Genetic susceptibility to [facility] malignant neoplasm of ovary [place], [place] [id number] V84.02 ; Ovarian cyst NOS 620.2 and Benign endometrial hyperplasia 621.34 [facility] Sep, Genetic susceptibility to [facility] malignant neoplasm of ovary [place], [place] [address] V84.02 and Ovarian cyst NOS 620.2 [facility] Sep, [place] [id number] [facility] 08 Mar, 2014 Genetic susceptibility to [facility] malignant neoplasm of ovary [place], [place] [id number] V84.02 and FAMILY HX-BREAST MALIG V16.3 [facility] 04 Mar, 2014 ROUTINE JUNIOR PHP DEVELOPER EXAMINATION [facility] V72.31 ; PAP SMEAR W/O JUNIOR PHP DEVELOPER [place], [place] [id number] EXAM V76.2 ; SCREEN MAMMOGRAM NEC V76.12 ; FAMILY HX-BREAST MALIG V16.3 ; Menometrorrhagia 626.2 and 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 [facility] 04 Mar, 2014 Genetic susceptibility to [facility] malignant neoplasm of ovary [place], [place] [address] V84.[address] November, Menometrorrhagia 626.2 ; [facility] [address] [place], Endometrial polyp 621.0 and [place] [id number] 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 [facility] [address] November, [place], [place] [id number] [place] [facility] [address] November, Menometrorrhagia 626.2 ; OBGYN [address] [place], Endometrial polyp 621.0 and [place] [id number] 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 [facility] Oct, [place] [id number] [place] [facility] [address] Oct, Menometrorrhagia 626.2 ; OBGYN [address] [place], Endometrial polyp 621.0 and [place] [id number] 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 [place] [facility] [address] Oct, Menometrorrhagia [address]26.[address] [place] [id number] [facility] 103 Oct, Menometrorrhagia 626.2 [place] [id number] [facility] 103 Oct, Menometrorrhagia 626.2 and OBGYN [facility] Endometrial polyp 621.0 [place], [place] [id number] [facility] Sep, [place] [id number] [facility] Sep, [place]BG[place] [id number] [facility] Sep, [place] [id number] [facility] Sep, Genetic susceptibility to [facility] malignant neoplasm of ovary [place], [place] [id number] V84.02 and Menometrorrhagia 626.2 [facility] 103 Sep, [facility] neoplasm of ovary [place], [place] [address] V84.02 [facility] Jul, [place] [id number] [facility] Jul, OBG[place] [id number] [facility] Jul, [place], [place] [id number] [facility] Feb, OBG[place] [id number] [facility] Feb, Genetic susceptibility to OBGYN [facility] malignant neoplasm of ovary [place], [place] [address] V84.02 [facility] Feb, Genetic susceptibility to OBGYN [facility] malignant neoplasm of ovary [place] [address] V84.02 [facility] Feb, [place]BG[place] [id number] [facility] Feb, OBG[place] [id number] [facility] Feb, OBGYN [place] [id number] [facility] Jan, OBG[place] [id number] [address] Jan, Menorrhagia 626.2 ; FAMILY [address]YN [address] [place], -BREAST MALIG V16.3 ; [place] [id number] 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 ; Body Mass Index 40.0-44.9, adult V85.41 and ROUTINE JUNIOR PHP DEVELOPER EXAMINATION V72.[address] Oct, Menorrhagia [address] [place], [place] [id number] [facility] [address] Sep, Medical [place] [id number] [facility] Sep, Menorrhagia 626.2 [place]YN [place] [id number] [facility] Sep, Ovarian cyst NOS 620.2 and [facility] 614.1 [place] [id number] [facility] Aug, [place] [id number] [place] [facility] [address] [place] [address] Aug, Menorrhagia 626.2 ; FAMILY [address]YN [address] [place], HX-BREAST MALIG V16.3 ; [place] [id number] 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 and Body Mass Index 40.0-44.9, adult V85.41 [facility] Jul, [place] [id number] [place] [facility] [address] [place] [address] Jul, Menorrhagia 626.2 ; FAMILY [address]YN [address] [place], HX-BREAST MALIG V16.3 ; [place] [id number] 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 and Body Mass Index 40.0-44.9, adult V85.41 [facility] Jul, Menorrhagia 626.2 [place] [id number] [facility] Jul, Menorrhagia 626.2 ; OBGYN [facility] Endometrial polyp 621.0 ; [place] [id number] Hydrosalpinx 614.1 ; Ovarian cyst NOS 620.2 and 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 [facility] Jul, [place] [id number] [facility] Jul, ROUTINE JUNIOR PHP DEVELOPER EXAMINATION [facility] V72.31 ; Menorrhagia 626.2 [place], [place] [id number] ; FAMILY HX-BREAST MALIG V16.3 and 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 [facility] Jul, Genetic susceptibility to OBGYN [facility] malignant neoplasm of ovary [place], [place] [id number] V84.02 and ABN FINDINGS- ORGANS 793.5 [facility] Jun, [place] [id number] [facility] May, [place] [id number] [facility] May, OBG[place] [id number] [facility] Jan, [facility] neoplasm of ovary [place], [place] [address] V84.02 and Ovarian cyst NOS 620.2 [facility] Jan, Ovarian cyst NOS 620.2 and OBGYN [facility] Genetic susceptibility to [place], [place] [id number] malignant neoplasm of ovary V84.02 [facility] Jan, [place] [id number] [facility] Dec, [place] [id number] [facility] November, Genetic susceptibility to OBGYN [facility] malignant neoplasm of ovary [place], [place] 8030[address] V84.02 and Ovarian cyst NOS 620.2 [facility] November, Ovarian cyst NOS 620.2 [place] [id number] [facility] November, Ovarian cyst NOS 620.2 [place] [id number] [facility] November, [facility] neoplasm of ovary [place], [place] [address] V84.02 and Ovarian cyst NOS 620.2 [facility] November, [facility] malignant neoplasm of ovary [place], [place] [id number] V84.02 ; Ovarian cyst NOS 620.2 and ABN FINDINGS- ORGANS 793.5 [facility] Oct, [place] [id number] [facility] May, ROUTINE JUNIOR PHP DEVELOPER EXAMINATION [facility] V72.31 ; Genetic [place], [place] [id number] susceptibility to malignant neoplasm of ovary V84.02 and FAMILY HX-BREAST MALIG V16.3 [facility] May, Genetic susceptibility to [facility] malignant neoplasm of ovary [place], [place] [id number] V84.02 and FAMILY HX-BREAST MALIG V16.3 [facility] Dec, Menorrhagia 626.2 ; OBGYN [facility] Leiomyoma of uterus, [place], [place] [id number] unspecified 218.9 ; FAMILY HX-BREAST MALIG V16.3 ; Urinary incontinence, unspecified 788.30 and Body Mass Index 40.0-44.9, adult V85.41 [facility] Dec, FAMILY HX-BREAST MALIG [facility] V16.3 [place] [id number] [facility] November, [place] [id number] [facility] Oct, [place] [id number] [facility] Oct, [place] [id number] [facility] Sep, [place] [id number] [place] [facility] [address] [place] [address] Sep, Menorrhagia 626.2 ; [address], Leiomyoma of uterus, [place] [id number] unspecified 218.9 ; FAMILY HX-BREAST MALIG V16.3 ; Urinary incontinence, unspecified 788.30 and Body Mass Index 40.0-44.9, adult V85.[address] Jun, Menorrhagia 626.2 ; [address], Leiomyoma of uterus, [place] [id number] unspecified 218.9 ; FAMILY HX-BREAST MALIG V16.3 ; BMI 40 AND OVER,ADULT V85.4 and Urinary incontinence, unspecified 788.[address] Jun, Menorrhagia [address]26[address] [id number] [facility] Jun, Menorrhagia 626.2 [place] [id number] [facility] Jun, Menorrhagia 626.2 [place] [id number] [facility] May, [place] [id number] [facility] May, [place], [place] [id number] [address] Apr, ROUTINE JUNIOR PHP DEVELOPER EXAMINATION [address], V72.31 ; Leiomyoma of [place] [id number] uterus, unspecified 218.9 ; Menorrhagia 626.2 ; Urinary incontinence, unspecified 788.30 ; BMI 40 AND OVER,ADULT V85.4 and FAMILY HX-BREAST MALIG V16.3 IMMUNIZATIONS No Known Immunizations SOCIAL HISTORY Never Assessed REASON FOR REFERRAL FUNCTIONAL STATUS PLAN OF CARE Activity Details Follow Up annual in October Reason: VITAL SIGNS Height 66.5 in 2019-06-28 Weight 204 lbs 2019-06-28 BMI 32.43 kg/m2 2019-06-28 Blood pressure systolic 90 mm Hg 2019-06-28 Blood pressure diastolic 62 mm Hg 2019-06-28 MEDICATIONS Medication Instructions Dosage Frequency Start End Duration Status Date Date Prevacid 30 mg orally once a 1 cap(s) 24h Active day Xanax 0.25 mg orally prn 1 tab(s) Active Reglan 5 mg orally prn 1 tab(s) 30 day(s) Active cholestyramine 4 orally 2 times a 12h Active g/5 g day Valtrex 1 g orally 2 times a 1 tab(s) 12h 5 day(s) Active day Zoloft 12.5 Oral qd 1 tab 24h Active PROCEDURES No Known procedures RESULTS No Results REASON FOR VISIT CBE Insurance Providers [facility] Health Member Patient Patient Patient Patient Patient Subscriber Subscriber Subscriber Group Insurance Plan Plan Plan Plan ID Relationship Address Phone Name Date of ID Name Date of No Type Insurance Insurance Insurance Coverage to Subscriber Address Phone Name Dates [employer] [phone] [employer] self [place] [id number] [phone] [facility] [id number] Health Now [phone] Health Now [place] [phone] [id number] [facility] [phone] [employer] [phone] [employer] self [place] [phone] [id number] [place] [phone] [facility] 0150 [phone] MEDICAL (GENERAL) HISTORY Type Description Date Medical History BRCA2 mutation: H7491E (6286G>A)- polymorphism Medical History Migraines (rare) w/o aura Medical History Anemia Medical History Asthma Medical History Sleep Apnea Medical History Allergies Medical History panic attacks Medical History Chronic inflammatory response syndrome Medical History loss of hearing L ear Surgical History Fatty tumor removed near breast 2006 Surgical History hysteroscopy, D&C 10/05/12 Surgical History Hysteroscopy/D&C: EM polyp 11-14-13 Surgical History TLH, BS, USS:cystoscopy 04/17/15 Surgical History cataract surgery x 2 2016 Surgical History colonoscopy 2016 Hospitalization History childbirth 1994 Hospitalization History childbirth 1996
--- OUTSIDE RECORDS SUMMARY | 2019-08-09 10:35 | XMS REPORT ---
:1965 Author Organization [facility] Address [address] [place] [address] Care Team Providers Name Role Phone Thu Alatorre Unavailable Unavailable PROBLEMS Type Condition ICD9-CM Code [id number] Code Onset Condition SNOMED Code Dates Status Problem Cystocele, N81.11 Active 362421861 midline Problem Family history of Z80.3 Active 133167705 malignant neoplasm of breast Problem Unspecified R32 Active 197453367 urinary incontinence Problem Excessive and N92.1 Active 26074350 frequent menstruation with irregular cycle Problem Incomplete N81.2 Active 844621256 uterovaginal prolapse ALLERGIES No Information ENCOUNTERS Encounter Location Date Diagnosis [address] Oct, [facility] [address] [place] [address] [id number] [facility] 103 Jun, Family history of malignant OBGYN [facility] neoplasm of breast Z80.3 [place], [place] [id number] [address] Jun, Family history of malignant OBGYN Road [address] [place] [address], neoplasm of breast Z80.3 [place] [id number] [facility] 103 Oct, OBGYN [place] [id number] [address] Oct, Encounter for gynecological [facility] [address] [place] [address], examination (general) [place] [id number] (routine) without abnormal findings Z01.419 ; Encounter for screening mammogram for malignant neoplasm of breast Z12.31 ; Encounter for screening for malignant neoplasm of colon Z12.11 and Family history of malignant neoplasm of breast Z80.3 [facility] 103 Feb, Family history of malignant OBGYN [facility] neoplasm of breast Z80.3 [place] [id number] [facility] 103 Feb, OBGYN [place] [id number] [place] [facility] [address] Feb, Family history of malignant OBGYN [address] [place], neoplasm of breast Z80.3 [place] [id number] [facility] 103 Feb, OBGYN [place] [id number] [facility] 103 November, OBGYN [place] [id number] [place] [facility] [address] Aug, Encounter for gynecological OBGYN [address] [place], examination (general) [place] [id number] (routine) without abnormal findings Z01.419 ; Family history of malignant neoplasm of breast Z80.3 ; Encounter for screening mammogram for malignant neoplasm of breast Z12.31 ; Encounter for screening for malignant neoplasm of colon Z12.11 and Unspecified urinary incontinence R32 [facility] 103 Aug, OBGYN [place] [id number] [facility] 103 Mar, Encounter for screening OBGYN [facility] mammogram for malignant [place], [place] [id number] neoplasm of breast Z12.31 [place] [facility] [address] [facility] Feb, Family history of malignant OBGYN [address] [place], neoplasm of breast Z80.3 [place] [id number] [facility] 103 Aug, Family history of malignant OBGYN [facility] neoplasm of breast Z80.3 [place] [id number] and 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 [place] [facility] [address] Aug, Encounter for gynecological OBGYN [address] [place], examination (general) [place] [id number] (routine) without abnormal findings Z01.419 ; Encounter for screening mammogram for malignant neoplasm of breast Z12.31 ; Encounter for screening for malignant neoplasm of colon Z12.11 and Family history of malignant neoplasm of breast Z80.[address] Mar, Genetic susceptibility to OBGYN [address] [place], malignant neoplasm of ovary [place] [id number] Z15.02 ; Family history of malignant neoplasm of breast Z80.3 and Body mass index (BMI) 40.0-44.9, adult Z68.41 [facility] 103 Mar, OBGYN [place] [id number] [facility] 103 Jan, Genetic susceptibility to OBGYN [facility] malignant neoplasm of ovary [place], [place] [id number] Z15.02 ; Family history of malignant neoplasm of breast Z80.3 ; Unspecified urinary incontinence R32 and Body mass index (BMI) 40.0-44.9, adult Z68.41 [facility] 103 Jan, Genetic susceptibility to OBGYN [facility] malignant neoplasm of ovary [place], [place] [id number] Z15.02 [facility] 103 Jul, Family history of malignant OBGYN [facility] neoplasm of breast Z80.3 [place] [id number] and 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 [facility] 103 Jul, Encounter for gynecological OBGYN [facility] examination (general) [place], [place] [id number] (routine) with abnormal findings Z01.411 ; Encounter [...] Body mass index (BMI) 40.0-44.9, adult Z68.41 [facility] 103 Jul, Genetic susceptibility to OBGYN [facility] malignant neoplasm of ovary [place], [place] [id number] Z15.02 [place] [facility] [address] Jun, Incomplete uterovaginal OBGYN [address] [place], prolapse N81.2 ; Cystocele, [place] [id number] midline N81.11 ; Unspecified urinary incontinence R32 ; Excessive and frequent menstruation with irregular cycle N92.1 ; 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 and Incisional hernia without obstruction or gangrene K43.2 [facility] 103 May, [place], [place] [id number] [place] [facility] [address] [place] [address] [address] Apr, Incomplete uterovaginal OBGYN Road [address] [place], prolapse N81.2 ; Cystocele, [place] [id number] midline N81.11 ; Unspecified urinary incontinence R32 ; Excessive and frequent menstruation with irregular cycle N92.1 ; 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 ; Painful micturition, unspecified R30.9 and Incisional hernia without obstruction or gangrene K43.2 [facility] 103 Apr, [facility] neoplasm of ovary [place], [place] [id number] Z15.02 ; Body mass index (BMI) 40.0-44.9, adult Z68.41 and Family history of malignant neoplasm of breast Z80.3 [place] [facility] [address] [place] [address] [address] Apr, Incisional hernia without OBGYN Road [address] [place], obstruction or gangrene [place] [id number] K43.2 [facility] 103 Apr, [place]BG[place] [id number] [facility] 103 Apr, OBG[place] [id number] [facility] 103 Apr, OBGYN [place], [place] [id number] [place] [address] Apr, Medical [place], [place] [id number] [facility] 103 Apr, [place], [place] [id number] [facility] [address] [place] [address] Apr, Incomplete uterovaginal [facility] [address] [place] [address], prolapse N81.2 ; Cystocele, [place] [id number] midline N81.11 ; Unspecified urinary incontinence R32 ; Excessive and frequent menstruation with irregular cycle N92.1 and 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 Feb, [place], [place] [id number] [facility] Feb, UTERINE PROLAPSE 618.1 [place] [id number] [address] Feb, UTERINE PROLAPSE 618.1 ; [facility] [address] [place] [address], Cystocele, midline 618.01 [place] [id number] and URINARY INCONTINENCE NOS 788.30 [place] [facility] [address] [place] [address] Jan, UTERINE PROLAPSE 618.1 ; [facility] [address] [place] [address], Cystocele, midline 618.01 [place] [id number] and URINARY INCONTINENCE NOS 788.30 [facility] 103 Jan, [place], [place] [id number] [facility] [address] [place] [address] Jan, UTERINE PROLAPSE 618.1 ; [facility] [address] [place] [address], Cystocele, midline 618.01 ; [place] [id number] Urinary frequency 788.41 and URINARY INCONTINENCE NOS 788.30 [facility] 103 Oct, Ovarian cyst NOS 620.2 and OBGYN [facility] FAMILY HX-BREAST MALIG [place], [place] [id number] V16.3 [facility] 103 Oct, Ovarian cyst NOS 620.2 OBGYN [place], [place] [id number] [facility] 103 Sep, OBGYN [place], [place] [id number] [facility] 103 Sep, Genetic susceptibility to [facility] malignant neoplasm of ovary [place], [place] [id number] V84.02 ; Ovarian cyst NOS 620.2 and Benign endometrial hyperplasia 621.34 [facility] 103 Sep, Genetic susceptibility to [facility] malignant neoplasm of ovary [place], [place] [id number] V84.02 and Ovarian cyst NOS 620.2 [facility] Sep, O[place], [place] [id number] [facility] 103 Mar, Genetic susceptibility to [facility] malignant neoplasm of ovary [place], [place] [id number] V84.02 and FAMILY HX-BREAST MALIG V16.3 [facility] 103 04 Mar, 2014 ROUTINE MISSION ANALYST EXAMINATION [facility] V72.31 ; PAP SMEAR W/O MISSION ANALYST [place] [id number] EXAM V76.2 ; SCREEN MAMMOGRAM NEC V76.12 ; FAMILY HX-BREAST MALIG V16.3 ; Menometrorrhagia 626.2 and 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 [facility] 04 Mar, 2014 [facility] malignant neoplasm of ovary [place], [place] [id number] V84.[address] November, Menometrorrhagia 626.2 ; OBGYN [address] [place], Endometrial polyp 621.0 and [place] [id number] 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 [facility] [address] November, [place], [place] [id number] [place] [facility] [address] November, Menometrorrhagia 626.2 ; OBGYN [address] [place], Endometrial polyp 621.0 and [place] [id number] 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 [facility] 103 Oct, OBGYN [place], [place] [id number] [place] [facility] [address] Oct, Menometrorrhagia 626.2 ; OBGYN Road [address] [place], Endometrial polyp 621.0 and [place] [id number] 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 [place] [facility] [address] Oct, Menometrorrhagia [address]26[address] [place] [id number] [facility] 103 Oct, Menometrorrhagia 626.2 OBGYN [place], [place] [id number] [facility] 103 Oct, Menometrorrhagia 626.2 and OBGYN [facility] Endometrial polyp 621.0 [place] [id number] [facility] 103 Sep, OBGYN [place], [place] [id number] [facility] 103 Sep, OBGYN [place], [place] [id number] [facility] 103 Sep, OBGYN [place] [id number] [facility] 103 Sep, [facility] malignant neoplasm of ovary [place], [place] [id number] V84.02 and Menometrorrhagia 626.2 [facility] 103 Sep, Genetic [facility] malignant neoplasm of ovary [place], [place] [id number] V84.02 [facility] 103 Jul, OBGYN [place] [id number] [facility] 103 Jul, OBGYN [place], [place] [id number] [facility] 103 Jul, OBGYN [place], [place] [id number] [facility] 103 Feb, OBGYN [place], [place] [id number] [facility] 103 Feb, [facility] malignant neoplasm of ovary [place], [place] [id number] V84.02 [facility] 103 Feb, [facility] malignant neoplasm of ovary [place] [id number] V84.02 [facility] 103 Feb, OBGYN [place] [id number] [facility] 103 Feb, OBGYN [place] [id number] [facility] 103 Feb, [place] [id number] [facility] 103 Jan, [place] [id number] [address] Jan, Menorrhagia 626.2 ; FAMILY OBGY Road [address] [place] [address], -BREAST MALIG V16.3 ; [place] [id number] 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 ; Body Mass Index 40.0-44.9, adult V85.41 and ROUTINE MISSION ANALYST EXAMINATION V72.[address] Oct, Menorrhagia 626.2 [facility] [address] [place] [address] [id number] [facility] [address] Sep, [place], [place] [id number] [facility] 103 Sep, Menorrhagia 626.2 [place] [id number] [facility] 103 Sep, Ovarian cyst NOS 620.2 and [facility] Hydrosalpinx 614.1 [place] [id number] [facility] 103 Aug, [place] [id number] [place] [facility] [address] [place] [address] Aug, Menorrhagia 626.2 ; FAMILY [address]YN [address] [place], HX-BREAST MALIG V16.3 ; [place] [id number] 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 and Body Mass Index 40.0-44.9, adult V85.41 [facility] 103 Jul, [place] [id number] [place] [facility] [address] [place] [address] Jul, Menorrhagia 626.2 ; FAMILY OBGYN [address] [place], HX-BREAST MALIG V16.3 ; [place] [id number] 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 and Body Mass Index 40.0-44.9, adult V85.41 [facility] 103 Jul, Menorrhagia 626.2 [place] [id number] [facility] 103 Jul, Menorrhagia 626.2 ; [facility] Endometrial polyp 621.0 ; [place] [id number] Hydrosalpinx 614.1 ; Ovarian cyst NOS 620.2 and 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 [facility] 103 Jul, [place] [id number] [facility] 103 Jul, ROUTINE MISSION ANALYST EXAMINATION [facility] V72.31 ; Menorrhagia 626.2 [place] [id number] ; FAMILY HX-BREAST MALIG V16.3 and 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 [facility] 103 10 Jul, 2012 Genetic susceptibility to OBGYN [facility] malignant neoplasm of ovary [place], [place] [id number] V84.02 and ABN FINDINGS- ORGANS 793.5 [facility] 103 Jun, OBGYN [place] [id number] [facility] 103 May, OBGYN [place], [place] [id number] [facility] 103 May, OBGYN [place] [id number] [facility] 103 Jan, Genetic susceptibility to OBGYN [facility] malignant neoplasm of ovary [place], [place] [id number] V84.02 and Ovarian cyst NOS 620.2 [facility] 103 Jan, Ovarian cyst NOS 620.2 and OBGYN [facility] Genetic susceptibility to [place] [id number] malignant neoplasm of ovary V84.02 [facility] 103 Jan, OBGYN [place], [place] [id number] [facility] 103 Dec, OBGYN [place], [place] [id number] [facility] 103 November, Genetic susceptibility to OBGYN [facility] malignant neoplasm of ovary [place], [place] [id number] V84.02 and Ovarian cyst NOS 620.2 [facility] 103 November, Ovarian cyst NOS 620.2 OBGYN [place], [place] [id number] [facility] 103 November, Ovarian cyst NOS 620.2 OBGYN [place], [place] [id number] [facility] 103 November, Genetic susceptibility to OBGYN [facility] malignant neoplasm of ovary [place], [place] [id number] V84.02 and Ovarian cyst NOS 620.2 [facility] 103 November, Genetic susceptibility to OBGYN [address] malignant neoplasm of ovary [place], [place] [id number] V84.02 ; Ovarian cyst NOS 620.2 and ABN FINDINGS- ORGANS 793.5 [facility] 103 Oct, [place] [id number] [facility] 103 May, ROUTINE MISSION ANALYST EXAMINATION [facility] V72.31 ; Genetic [place], [place] [id number] susceptibility to malignant neoplasm of ovary V84.02 and FAMILY HX-BREAST MALIG V16.3 [facility] 103 May, Genetic susceptibility to [facility] malignant neoplasm of ovary [place] [id number] V84.02 and FAMILY HX-BREAST MALIG V16.3 [facility] 103 Dec, Menorrhagia 626.2 ; [facility] Leiomyoma of uterus, [place], [place] [id number] unspecified 218.9 ; FAMILY HX-BREAST MALIG V16.3 ; Urinary incontinence, unspecified 788.30 and Body Mass Index 40.0-44.9, adult V85.41 [facility] 103 Dec, FAMILY HX-BREAST MALIG [facility] V16.3 [place] [id number] [facility] 103 November, [place] [id number] [facility] 103 Oct, OBGYN [place] [id number] [facility] 103 Oct, [place] [id number] [facility] 103 Sep, [place] [id number] [place] [facility] Sep, Menorrhagia 626.2 ; OBGYN [address] [place], Leiomyoma of uterus, [place] [id number] unspecified 218.9 ; FAMILY HX-BREAST MALIG V16.3 ; Urinary incontinence, unspecified 788.30 and Body Mass Index 40.0-44.9, adult V85.[address] Jun, Menorrhagia 626.2 ; OBGYN [address] [place], Leiomyoma of uterus, [place] [id number] unspecified 218.9 ; FAMILY HX-BREAST MALIG V16.3 ; BMI 40 AND OVER,ADULT V85.4 and Urinary incontinence, unspecified 788.[address] Jun, Menorrhagia [address] [place], [place] [id number] [facility] Jun, Menorrhagia 626.2 [place] [id number] [facility] 103 Jun, Menorrhagia 626.2 [place] [id number] [facility] 103 May, OBGYN [place], [place] [id number] [facility] 103 May, [place] [id number] [address] Apr, ROUTINE MISSION ANALYST EXAMINATION [facility] [address] [place] [address], V72.31 ; Leiomyoma of [place] [id number] uterus, unspecified 218.9 ; Menorrhagia 626.2 ; Urinary incontinence, unspecified 788.30 ; BMI 40 AND OVER,ADULT V85.4 and FAMILY HX-BREAST MALIG V16.3 IMMUNIZATIONS No Known Immunizations SOCIAL HISTORY Never Assessed REASON FOR REFERRAL FUNCTIONAL STATUS PLAN OF CARE VITAL SIGNS MEDICATIONS Unknown Medications PROCEDURES No Known procedures RESULTS No Results REASON FOR VISIT APR 2019 Insurance Providers [facility] Member Patient Patient Patient Patient Patient Subscriber Subscriber Subscriber Group Insurance Plan Plan Plan Plan ID Relationship Address Phone Name Date of ID Name Date of No Type Insurance Insurance Insurance Coverage to Subscriber Address Phone Name Dates [facility] 80 [phone] [facility] [id number] [place] [address] [phone] [employer] [phone] [employer] self [place] [id number] [phone] [facility] 0150 [phone] [employer] [phone] [employer] self [place] [id number] 5 [phone] [facility] 0150 [phone] MEDICAL (GENERAL) HISTORY Type Description Date Medical History BRCA2 mutation: [id number] (6286G>A)- polymorphism Medical History Migraines (rare) w/o [...]
--- OUTSIDE RECORDS SUMMARY | 2019-08-09 10:35 | XMS REPORT ---
:1965 Author Name Tiffany Farmerdith Address [address] [place] [address] Care Team Providers Name Role Phone Yesenia Farmer Unavailable Unavailable PROBLEMS Type Condition ICD9-CM Code THN88-DE Code Onset Condition SNOMED Code Dates Status Problem Cystocele, N81.11 Active 455692764 midline Problem Family history of Z80.3 Active 845730983 malignant neoplasm of breast Problem Unspecified R32 Active 991515619 urinary incontinence Problem Excessive and N92.1 Active 78638059 frequent menstruation with irregular cycle Problem Incomplete N81.2 Active 147535452 uterovaginal prolapse ALLERGIES No Information ENCOUNTERS Encounter Location Date Diagnosis [address] Oct, [facility] [address] [place] [id number] [facility] 103 Jun, Family history of malignant OBGYN [facility] neoplasm of breast Z80.3 [place], [place] [id number] [address] Jun, Family history of malignant OBGYN [address] [place] [address], neoplasm of breast Z80.3 [place] [id number] [facility] 103 Oct, [place]BG[place] [id number] [address] Oct, Encounter for gynecological [facility] [address] [place] [address], examination (general) [place] [id number] (routine) without abnormal findings Z01.419 ; Encounter for screening mammogram for malignant neoplasm of breast Z12.31 ; Encounter for screening for malignant neoplasm of colon Z12.11 and Family history of malignant neoplasm of breast Z80.3 [facility] 103 Feb, Family history of malignant OBGYN [facility] neoplasm of breast Z80.3 [place], [place] [id number] [facility] 103 Feb, OBGYN [place] [id number] [facility] [address] Feb, Family history of malignant [address]BGYN [address] [place], neoplasm of breast Z80.3 [place] [id number] [facility] 103 Feb, [place] [id number] [facility] 103 November, OBGYN [place] [id number] [facility] [address] Aug, Encounter for gynecological OBGYN [address] [place], examination (general) [place] [id number] (routine) without abnormal findings Z01.419 ; Family history of malignant neoplasm of breast Z80.3 ; Encounter for screening mammogram for malignant neoplasm of breast Z12.31 ; Encounter for screening for malignant neoplasm of colon Z12.11 and Unspecified urinary incontinence R32 [facility] 103 Aug, OBG[place] [id number] [facility] 103 Mar, Encounter for screening [facility]BGYN [facility] mammogram for malignant [place], [place] [id number] neoplasm of breast Z12.31 [place] [facility] [address] [facility] Feb, Family history of malignant OBGYN [address] [place], neoplasm of breast Z80.3 [place] [id number] [facility] 103 Aug, Family history of malignant OBGYN [facility] neoplasm of breast Z80.3 [place], [place] [id number] and 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 [facility] [place] [facility] [address] Aug, Encounter for gynecological OBGYN [address] [place], examination (general) [place] [id number] (routine) without abnormal findings Z01.419 ; Encounter for screening mammogram for malignant neoplasm of breast Z12.31 ; Encounter for screening for malignant neoplasm of colon Z12.11 and Family history of malignant neoplasm of breast Z80.[address] Mar, Genetic susceptibility to OBGYN [address] [place], malignant neoplasm of ovary [place] [id number] Z15.02 ; Family history of malignant neoplasm of breast Z80.3 and Body mass index (BMI) 40.0-44.9, adult Z68.41 [facility] Mar, OBG[place] [id number] [facility] 103 Jan, Genetic susceptibility to OBGYN [facility] malignant neoplasm of ovary [place], [place] 3037[address] Z15.02 ; Family history of malignant neoplasm of breast Z80.3 ; Unspecified urinary incontinence R32 and Body mass index (BMI) 40.0-44.9, adult Z68.41 [facility] 103 Jan, Genetic susceptibility to OBGYN [facility] malignant neoplasm of ovary [place], [place] [id number] Z15.02 [facility] 103 Jul, Family history of malignant OBGYN [facility] neoplasm of breast Z80.3 [place], [place] [id number] and 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 [facility] 103 Jul, Encounter for gynecological OBGYN [facility] examination (general) [place], [place] [id number] (routine) with abnormal findings Z01.411 ; Encounter [...] Body mass index (BMI) 40.0-44.9, adult Z68.41 [facility] Jul, Genetic susceptibility to OBGYN [facility] malignant neoplasm of ovary [place], [place] [id number] Z15.02 [place] [facility] [address] [facility] Jun, Incomplete uterovaginal OBGYN [address] [place], prolapse N81.2 ; Cystocele, [place] [id number] midline N81.11 ; Unspecified urinary incontinence R32 ; Excessive and frequent menstruation with irregular cycle N92.1 ; 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 and Incisional hernia without obstruction or gangrene K43.2 [facility] 103 May, OBGYN [place] [id number] [place] [facility] [address] [place] [address] [facility] Apr, Incomplete uterovaginal OBGYN [address] [place], prolapse N81.2 ; Cystocele, [place] [id number] midline N81.11 ; Unspecified urinary incontinence R32 ; Excessive and frequent menstruation with irregular cycle N92.1 ; 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 ; Painful micturition, unspecified R30.9 and Incisional hernia without obstruction or gangrene K43.2 [facility] 103 Apr, [facility] neoplasm of ovary [place], [place] [address] Z15.02 ; Body mass index (BMI) 40.0-44.9, adult Z68.41 and Family history of malignant neoplasm of breast Z80.3 [facility] [address] [place] [address] [facility] Apr, Incisional hernia without OBGYN [address] [place], obstruction or gangrene [place] [id number] K43.2 [facility] 103 Apr, [place] [id number] [facility] 103 Apr, [place] [id number] [facility] 103 Apr, [place] [address] [place] [address] Apr, [place] [id number] [facility] 103 Apr, [place], [place] [address] [facility] [address] [place] [address] Apr, Incomplete uterovaginal [facility] [address] [place] [address], prolapse N81.2 ; Cystocele, [place] 173687517 midline N81.11 ; Unspecified urinary incontinence R32 ; Excessive and frequent menstruation with irregular cycle N92.1 and 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 Feb, [place] [id number] [facility] Feb, UTERINE PROLAPSE 618.1 [place] [id number] [address] Feb, UTERINE PROLAPSE 618.1 ; [facility] [address] [place] [address], Cystocele, midline 618.01 [place] [id number] and URINARY INCONTINENCE NOS 788.30 [facility] [address] [place] [address] Jan, UTERINE PROLAPSE 618.1 ; [facility] [address] [place] [address], Cystocele, midline 618.01 [place] [id number] and URINARY INCONTINENCE NOS 788.30 [facility] 103 Jan, [place] [address] [facility] [address] [place] [address] Jan, UTERINE PROLAPSE 618.1 ; [facility] [address] [place] [address], Cystocele, midline 618.01 ; [place] [id number] Urinary frequency 788.41 and URINARY INCONTINENCE NOS 788.30 [facility] 103 Oct, Ovarian cyst NOS 620.2 and OBGYN [facility] FAMILY HX-BREAST MALIG [place], [place] [id number] V16.3 [facility] 103 Oct, Ovarian cyst NOS 620.2 [place] [id number] [facility] 103 Sep, OBGYN [place] [address] [facility] 103 Sep, [facility] malignant neoplasm of ovary [place] 222[address] V84.02 ; Ovarian cyst NOS 620.2 and Benign endometrial hyperplasia 621.34 [facility] 103 Sep, [facility] malignant neoplasm of ovary [place], [place] [address] V84.02 and Ovarian cyst NOS 620.2 [facility] Sep, OBG[place] [id number] [facility] 103 Mar, [facility] malignant neoplasm of ovary [place], [place] [address] V84.02 and FAMILY HX-BREAST MALIG V16.3 [facility] 103 04 Mar, 2014 ROUTINE COMMUNITY FACILITATOR EXAMINATION [facility] V72.31 ; PAP SMEAR W/O COMMUNITY FACILITATOR [place], [place] [id number] EXAM V76.2 ; SCREEN MAMMOGRAM NEC V76.12 ; FAMILY HX-BREAST MALIG V16.3 ; Menometrorrhagia 626.2 and 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 [facility] 04 Mar, 2014 [facility] malignant neoplasm of ovary [place], [place] [address] V84.[address] November, Menometrorrhagia 626.2 ; OBGYN [address] [place], Endometrial polyp 621.0 and [place] [id number] 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 [facility] [address] November, [place] [id number] [place] [facility] [address] November, Menometrorrhagia 626.2 ; OBGYN [address] [place], Endometrial polyp 621.0 and [place] [id number] 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 [facility] 103 Oct, OBGYN [place], [place] [address] [place] [facility] [address] Oct, Menometrorrhagia 626.2 ; OBGYN [address] [place], Endometrial polyp 621.0 and [place] [id number] 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 [place] [facility] [address] Oct, Menometrorrhagia [address]26.[address] [place] [id number] [facility] 103 Oct, Menometrorrhagia 626.2 O[place]YN [place] [id number] [facility] 103 Oct, Menometrorrhagia 626.2 and OBGYN [facility] Endometrial polyp 621.0 [place] [id number] [facility] 103 Sep, OBGYN [place] [address] [facility] 103 Sep, [place] [id number] [facility] 103 Sep, OBGYN [place] [id number] [facility] 103 Sep, [facility] malignant neoplasm of ovary [place], [place] [address] V84.02 and Menometrorrhagia 626.2 [facility] 103 Sep, [facility] malignant neoplasm of ovary [place], [place] [address] V84.02 [facility] 103 Jul, OBG[place] [address] [facility] 103 Jul, OBGYN [place] [address] [facility] 103 Jul, OBG[place] [id number] [facility] 103 Feb, OBGYN [place] [address] [facility] 103 Feb, [facility] malignant neoplasm of ovary [place], [place] [address] V84.02 [facility] 103 Feb, [facility] malignant neoplasm of ovary [place], [place] [address] V84.02 [facility] 103 Feb, O[place] [address] [facility] 103 Feb, OBGYN [place] [id number] [facility] 103 Feb, [place] [address] [facility] 103 Jan, [place] [address] [address] Jan, Menorrhagia 626.2 ; FAMILY OBGY [address] [place] [address], -BREAST MALIG V16.3 ; [place] [id number] 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 ; Body Mass Index 40.0-44.9, adult V85.41 and ROUTINE COMMUNITY FACILITATOR EXAMINATION V72.[address] Oct, Menorrhagia 626.[address] [facility] [address] [place] [id number] [facility] [address] Sep, [place] [id number] [facility] 103 Sep, Menorrhagia 626.2 [place] [address] [facility] 103 Sep, Ovarian cyst NOS 620.2 [facility] Hydrosalpinx 614.1 [place] [id number] [facility] 103 Aug, [place] [address] [place] [facility] [address] [place] [address] Aug, Menorrhagia 626.2 ; FAMILY [address]YN [address] [place], HX-BREAST MALIG V16.3 ; [place] [id number] 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 and Body Mass Index 40.0-44.9, adult V85.41 [facility] 103 Jul, [place] [address] [facility] [facility] [address] [place] [address] Jul, Menorrhagia 626.2 ; FAMILY OBGYN [address] [place], HX-BREAST MALIG V16.3 ; [place] [id number] 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 and Body Mass Index 40.0-44.9, adult V85.41 [facility] 103 Jul, Menorrhagia 626.2 [place] [id number] [facility] 103 Jul, Menorrhagia 626.2 ; [facility] Endometrial polyp 621.0 ; [place], [place] [address] Hydrosalpinx 614.1 ; Ovarian cyst NOS 620.2 and 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 [facility] 103 Jul, [place] [id number] [facility] 103 Jul, ROUTINE COMMUNITY FACILITATOR EXAMINATION [facility] V72.31 ; Menorrhagia 626.2 [place] 4216[address] ; FAMILY HX-BREAST MALIG V16.3 and 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 [facility] 103 10 Jul, 2012 Genetic susceptibility to OBGYN [facility] malignant neoplasm of ovary [place], [place] 881069[address] V84.02 and ABN FINDINGS- ORGANS 793.5 [facility] 103 Jun, OBG[place] [id number] [facility] 103 May, [place] [id number] [facility] 103 May, OBGYN [place] [address] [facility] 103 Jan, Genetic susceptibility to OBGYN [facility] malignant neoplasm of ovary [place], [place] 16[address] V84.02 and Ovarian cyst NOS 620.2 [facility] 103 Jan, Ovarian cyst NOS 620.2 and OBGYN [facility] Genetic susceptibility to [place], [place] [address] malignant neoplasm of ovary V84.02 [facility] 103 Jan, [place] [address] [facility] 103 Dec, OBG[place] [address] [facility] 103 November, Genetic susceptibility to OBGYN [facility] malignant neoplasm of ovary [place], [place] 778[address] V84.02 and Ovarian cyst NOS 620.2 [facility] 103 November, Ovarian cyst NOS 620.2 [place] [address] [facility] 103 November, Ovarian cyst NOS 620.2 [place] [id number] [facility] 103 November, Genetic susceptibility to OBG[facility] malignant neoplasm of ovary [place], [place] [address]559[address] V84.02 and Ovarian cyst NOS 620.2 [facility] 103 November, Genetic susceptibility to OBGYN [address] malignant neoplasm of ovary [place], [place] [address]235[address] V84.02 ; Ovarian cyst NOS 620.2 and ABN FINDINGS- ORGANS 793.5 [facility] 103 Oct, [place] [id number] [facility] 103 May, ROUTINE COMMUNITY FACILITATOR EXAMINATION [facility] V72.31 ; Genetic [place] [id number] susceptibility to malignant neoplasm of ovary V84.02 and FAMILY HX-BREAST MALIG V16.3 [facility] 103 May, Genetic susceptibility to [facility] malignant neoplasm of ovary [place], [place] 398[address]38[address] V84.02 and FAMILY HX-BREAST MALIG V16.3 [facility] 103 Dec, Menorrhagia 626.2 ; [facility] Leiomyoma of uterus, [place], [place] [address] unspecified 218.9 ; FAMILY HX-BREAST MALIG V16.3 ; Urinary incontinence, unspecified 788.30 and Body Mass Index 40.0-44.9, adult V85.41 [facility] 103 Dec, FAMILY HX-BREAST MALIG [facility] V16.3 [place] [id number] [facility] 103 November, [place] [address] [facility] 103 Oct, OBG[place] [id number] [facility] 103 Oct, [place] [address] [facility] Sep, [place] [address] [place] [facility] Sep, Menorrhagia 626.2 ; OBGYN [address] [place], Leiomyoma of uterus, [place] [address] unspecified 218.9 ; FAMILY HX-BREAST MALIG V16.3 ; Urinary incontinence, unspecified 788.30 and Body Mass Index 40.0-44.9, adult V85.[address] Jun, Menorrhagia 626.2 ; OBGYN [address] [place], Leiomyoma of uterus, [place] [id number] unspecified 218.9 ; FAMILY HX-BREAST MALIG V16.3 ; BMI 40 AND OVER,ADULT V85.4 and Urinary incontinence, unspecified 788.[address] Jun, Menorrhagia [address]26.[address] [place], [place] [id number] [facility] Jun, Menorrhagia 626.2 [place] [id number] [facility] 103 Jun, Menorrhagia 626.2 [place] [address] [facility] 103 May, OBG[place] [id number] [facility] 103 May, [place] [id number] [address] Apr, ROUTINE COMMUNITY FACILITATOR EXAMINATION [facility] [address] [place] [address], V72.31 ; Leiomyoma of [place] 908400622 uterus, unspecified 218.9 ; Menorrhagia 626.2 ; Urinary incontinence, unspecified 788.30 ; BMI 40 AND OVER,ADULT V85.4 and FAMILY HX-BREAST MALIG V16.3 IMMUNIZATIONS No Known Immunizations SOCIAL HISTORY Never Assessed REASON FOR REFERRAL FUNCTIONAL STATUS PLAN OF CARE Activity Details Pending Test MRIBRWWOBI VITAL SIGNS MEDICATIONS Unknown Medications PROCEDURES No Known procedures RESULTS No Results REASON FOR VISIT breast MRI due now - c x 2 Insurance Providers [facility] Member Patient Patient Patient Patient Patient Subscriber Subscriber Subscriber Group Insurance Plan Plan Plan Plan ID Relationship Address Phone Name Date of ID Name Date of No Type Insurance Insurance Insurance Coverage to Subscriber Address Phone Name Dates [employer] [address]- [employer] self [place] [id number] [phone] [facility] [phone] [employer] [phone] [employer] self [place] [id number] [phone] [facility] 0150 [phone] Health Now [phone] Health Now [place] [phone] [id number] [facility] [phone] MEDICAL (GENERAL) HISTORY Type Description Date Medical History BRCA2 mutation: A3134S (6286G>A)- polymorphism Medical History Migraines (rare) w/o [...]
--- OUTSIDE RECORDS SUMMARY | 2019-08-09 10:36 | XMS REPORT | Continuity of Care Document ---
:1965 External Reference #:[id number] Author Name Mello Davies MD Address [address] [place] [address] Care Team Providers Name Role Phone Valentin Kirkland MD - Family Medicine Care Team Information Electrical Maintenance Engineer [phone] Problems Description No Information Available Social History [...] as needed Thermotabs Unknown Tablets Synospin Nasal Mccarr Unknown Valacyclovir HCL as directed Unknown 1gm [...] Result H/L Range Note Laboratory test 06/22/2019 [facility] Fungal <pending > finding c/o Department [place] [address] Bottles [phone] Fungus Smear <pending> Procedures Date Code Description Status 06/13/2019 02176 Labyrinthectomy, [place] Completed 06/07/2019 04000 Tympanometry Completed 06/07/2019 85215 Comprehensive Audiogram Completed Medical Devices Description No Information Available Encounters Type Date Location Provider Dx Diagnosis Office Visit 06/05/2019 [place],After Mello Davies H90.5 Unspecified 3:30p 07/12/07 sensorineural hearing loss Assessments Date Code Description Provider 06/22/2019 H90.42 Sensorineural hearing loss, unilateral, left Mello Davies MD ear, with unrestricted hearing on the contralateral side 06/13/2019 H90.42 Sensorineural hearing loss, unilateral, left Mello Davies MD ear, with unrestricted hearing on the contralateral side 06/13/2019 H90.5 Unspecified sensorineural hearing loss Mello Davies MD 06/07/2019 H90.42 Sensorineural hearing loss, unilateral, left Bridget Crast , [place].D ear, with unrestricted hearing on the contralateral side 06/05/2019 H90.5 Unspecified sensorineural hearing loss Mello Davies MD Plan of Treatment Future Appointment(s):06/29/2019 11:30 am - Mello Davies MD at [place],After - Mello Davies MDH90.42 Sensorineural hearing loss, unilateral, left ear, with unrestricted hearing on the contralateral sideComments:Patient is to return weekly for installation of Decadron.H90.5 Unspecified sensorineural hearing loss Functional Status Description No Information Available Mental Status Description No Information Available Referrals Description No Information Available
--- OUTSIDE RECORDS SUMMARY | 2019-08-09 10:36 | XMS REPORT | Continuity of Care Document ---
:1965 External Reference #:[id number] Author Name Homa Yi O.D. Address [address] [place] [address] Care Team Providers Name Role Phone Valentin Kirkland M.D. - Family Medicine Care Team Information Mailing Clerk Problems Active Problems Provider Date Sleep apnea [...] intraocular lens Evan Ramirez M.D. Onset: 02/06/2016 Epidemic hemorrhagic conjunctivitis Homa Yi O.D. Onset: 08/21/2016 Gastroesophageal reflux disease Onset: Myopia Homa Yi O.D. Onset: 08/19/2018 Presbyopia Homa Yi O.D. Onset: 08/19/2018 Regular astigmatism Homa Yi O.D. Onset: 08/19/2018 Chronic inflammatory disorder Onset: Chronic fatigue syndrome Onset: Sudden hearing loss Onset: Vertigo Onset: Acute hemorrhagic conjunctivitis Homa Yi O.D. Onset: 06/10/2019 Social History Type Date Description Comments Sex Unknown ETOH Use Denies alcohol use Tobacco Use Start: Unknown Patient has never smoked Recreational Drug Use Denies Drug Use Smoking Status Reviewed: 06/10/19 Patient has never smoked Allergies, Adverse Reactions, Alerts Active Allergies Reaction Severity Comments Date Shrimp Hives Severe 06/10/2019 Wheat Gastro, Heart Severe 06/10/2019 Medications Active Medications SIG Qnty Indications Ordering Date Provider Maxitrol 1 drop both 10ml B30.3 Homa Yi, 06/10/2019 3.5-90386-9.1 eyes three O.D. Suspension times a day Systane Nighttime every night Dana Mckoy 02/25/2017 Smitha Moreno Ointment Restasis instill 1 drop 120units Dana Mckoy 04/16/2016 0.05% Emulsion into both eyes Smitha Moreno twice a day Warm Compresses as needed Dana Mckoy 08/11/2015 Smitha Moreno Alprazolam Take 1/2 To 1 Unknown 0.25mg Tablets Tab Twice A Day as Needed Metoclopramide HCL take 1 tablet Unknown 10mg once daily if Tablets needed Sertraline HCL 1/2 daily Unknown 25mg Tablets Omeprazole take 1 capsule Unknown 20mg Capsules by mouth once DR daily Immunizations Description No Information Available Vital Signs Date Vital Result Comment 05/22/2015 4:44pm BP Systolic 108 mmHg BP Diastolic 64 mmHg Heart Rate 65 /min Results Description No Information Available Procedures Description No Information Available Medical Devices Description No Information Available Encounters Description No Information Available Assessments Date Code Description Provider 06/10/2019 B30.3 Acute epidemic hemorrhagic conjunctivitis Homa Yi O.D. (enteroviral) Plan of Treatment Future Appointment(s):08/22/2019 10:00 am - Homa Yi O.D. at Evan Ramirez MD, pc108/10/2018 - Homa Yi O.D.B30.3 Acute epidemic hemorrhagic conjunctivitis (enteroviral)New Medication:Maxitrol 3.5-78114-5.1 - 1 drop both eyes three times a dayComments:Smoking can increase the risk of developing or worsening any eye related disease, as well as affect your overall health. If you are a smoker, we strongly recommend that you quit.If you are not a smoker , we strongly recommend that you do not start. You have viral Conjunctivitis. This is very contagious, so be sure to frequently wash your hands, avoid sharing towels etc. Use preservative free artificial tears as needed for comfort , chilled if needed. Also, use cool compresses for swelling and discomfort as needed. start maxitrol drops 3 times a day in both eyesif your symptoms worsen , please call the office to be seenFollow up:Wednesday or sooner as needed Functional Status Description No Information Available Mental Status Description No Information Available Referrals Description No Information Available
--- NOTE | 2019-08-09 10:41 | UC ---
Allergic Reaction HPI - HPI Summary HPI Summary: PATIENT HAD GADOLINIUM IV FOR A BREAST MRI TODAY OVER IN [facility] WHEN SHE STARTED FEELING FLUSHED AND SHAKY. HER BLOOD PRESSURE ELEVATED. STATES THIS HAPPENED LAST TIME SHE HAD GADOLINIUM WELL BUT THAT THIS TIME IS WORSE. PATIENT BROUGHT DIRECTLY HERE TO URGENT CARE. NO FEVER. NO NAUSEA. NO RASH. NO RESPIRATORY INVOLVEMENT. - History of Current Complaint Stated Complaint: ALLERGIC REACTION Time Seen by Provider: 08/09/19 10:30 Hx Obtained From: Patient Hx Last Menstrual Period: 3 weeks Onset/Duration: Sudden Onset, Lasting Minutes, Still Present Severity Initially: Moderate Severity Currently: Moderate Pain Intensity: 0 Pain Scale Used: 0-10 Numeric Aggravating Factor(s): Nothing Alleviating Factor(s): Nothing Associated Signs And Symptoms: Positive: Lightheadedness. Negative: Abdominal Pain, Chest Pain, Cough Wheezing, Difficulty Breathing, Hoarseness, Nausea, Rash , Syncope, Throat Tightening - Allergies/Home Medications Allergies/Adverse Reactions: Allergies Allergy/AdvReac Type Severity Reaction Status Date / Time prednisone Allergy Intermediate See Comment Verified 08/09/19 10:38 shrimp Allergy Mild Rash Verified 08/09/19 10:38 Wheat Allergy Mild itching , Uncoded 08/09/19 10:38 headache contrast dye Allergy See Comment Uncoded 08/09/19 10:38 Home Medications: Home Medications Acetaminophen/Diphenhydramine [Tylenol Pm Ex-Strength Caplet] 1 tab PO QPM PRN 08/09/19 [History Confirmed 08/09/19] [place] 1 dose PO DAILY 08/09/19 [History Confirmed 08/09/19] Buderate 1 tab PO DAILY 08/09/19 [History Confirmed 08/09/19] Calcium Carbonate [Calcium] 200 mg PO DAILY 08/09/19 [History Confirmed 08/09/19 ] Cholecalciferol (Vitamin D3) [Vitamin D3] 5,000 unit PO DAILY 08/09/19 [History Confirmed 08/09/19] Cyanocobalamin (Vitamin B-12) [Vitamin B-12] 1 tab PO BID 08/09/19 [History Confirmed 08/09/19] Lavella Supplement Lavender 1 tab PO BID PRN 08/09/19 [History Confirmed ] Magnesium 1 tab PO DAILY 08/09/19 [History Confirmed 08/09/19] Multivitamin [Multivitamins] 1 tab PO DAILY 08/09/19 [History Confirmed 08/09/19 ] Naltrexone HCl 0 dose PO DAILY 08/09/19 [History Confirmed 08/09/19] [place]-3 Fatty Acids/Fish Oil [Fish Oil 1,000 mg Softgel] 1 tab PO BID 08/09/19 [ History Confirmed 08/09/19] Spm Active 1 dose PO BID 08/09/19 [History Confirmed 08/09/19] PMH/Surg Hx/FS Hx/Imm Hx - Additional Past Medical History Additional PMH: CHRONIC FATIGUE SYNDROME Respiratory History: Asthma - Surgical History Surgical History: Yes Surgery Procedure, Year, and Place: tonsillectomy,endometriosis UTERINE ABLASION. 04/25 HYSTERECTOMY/BLADDER LIFT. [id number]-[id number] [employer]. BILATERAL CATARACTS 02/24 - Family History Known Family History: Negative: Diabetes Family History: BREAST CANCER - Social History Alcohol Use: None Substance Use Type: None Smoking Status (MU): Never Smoked Tobacco Review of Systems All Other Systems Reviewed And Are Negative: Yes Constitutional: Positive: Chills Respiratory: Positive: Negative Cardiovascular: Positive: Negative Gastrointestinal: Positive: Negative Neurological: Positive: Other - DIZZY Physical Exam Triage Information Reviewed: Yes Appearance: No Pain Distress, Well-Nourished, Other: - TREMULOUS Vital Signs Reviewed: Yes Eyes: Positive: Conjunctiva Clear ENT: Positive: Hearing grossly normal Neck: Positive: Supple Respiratory Exam: Normal Cardiovascular Exam: Normal Abdomen Description: Positive: Soft Musculoskeletal: Positive: No Edema Neurological: Positive: Alert Psychological: Positive: Age Appropriate Behavior Skin: Negative: Rashes Re-Evaluation - Re-Evaluation First Eval Re-Evaluation Time: 11:20 - FEELS BETTER AFTER 1LNS. LESS SHAKY BUT STILL A BIT WOOZY Change: Improved Second Eval Re-Evaluation Time: 13:15 - FEELS EVEN BETTER AFTER 2ND L NS. HAD SOMETHING TO EAT. NOT SHAKY ANYMORE Change: Improved Third Eval Re-Evaluation Time: 14:30 - READY TO GO HOME Change: Improved Allergic Reaction Course/Dx - Course Course Of Treatment: PATIENT ARRIVED FROM RADIOLOGY AFTER RECEIVING GADOLINIUM FOR BREAST MRI. PATIENT FELT FLUSHED, LIGHTHEADED AND TREMULOUS. BLOOD PRESSURE WAS ELEVATED. AFTER RECEIVING 2 L OF IV FLUIDS AND 50 MG OF BENADRYL HER SYMPTOMS IMPROVED. AFTER SEVERAL HOURS PATIENT FELT STABLE AND READY FOR DISCHARGE. STATES SHE HAD A SIMILAR REACTION LAST TIME SHE HAD GADOLINIUM. STRONGLY ENCOURAGED HER TO SPEAK WITH HER PROVIDER ABOUT ALTERNATIVE METHODS FOR ANNUAL SCREENING. - Differential Dx/Diagnosis Provider Diagnosis: Allergic reaction due to correct medicinal substance properly administered Discharge ED - Sign-Out/Discharge Documenting (check all that apply): Patient Departure All imaging exams completed and their final reports reviewed: No Studies - Discharge Plan Condition: Stable Disposition: HOME Patient Education Materials: General Allergic Reaction (ED) Referrals: Valentin Kirkland MD [Primary Care Provider] - If Needed Additional Instructions: YOUR SYMPTOMS RESOLVED HERE IN THE URGENT CARE AFTER SOME TIME, 2 L OF FLUID AND A DOSE OF BENADRYL. FOR FUTURE I WOULD DISCUSS WITH YOUR PROVIDER ABOUT ALTERNATIVE METHODS OF SCREENING FOR BREAST CANCER. GO TO THE ED WITHOUT FAIL IF YOU DEVELOP RECURRENT SYMPTOMS OR ANY RESPIRATORY INVOLVEMENT, TONGUE/LIP SWELLING, FEVER, NAUSEA/VOMITING OR ANY OTHER CONCERNING SYMPTOMS. - Billing Disposition and Condition Condition: STABLE Disposition: Home
[2019-08-09 14:52] VITALS: BP 109/58
== END 2019-08-09 15:03 | disposition home or self-care (01) ==
LOC: UCEAST 10:27
DX: T50.995A Adverse effect of other drugs, medicaments and biological substances, initial encounter (principal); J45.909 Unspecified asthma, uncomplicated; R53.82 Chronic fatigue, unspecified; Y92.9 Unspecified place or not applicable; Z91.041 Radiographic dye allergy status; Z91.013 Allergy to seafood; Z88.8 Allergy status to other drugs, medicaments and biological substances; Z91.018 Allergy to other foods; Z79.52 Long term (current) use of systemic steroids
CPT/HCPCS: 96360; 96361; 96374; 99212; G0463; J1200